=== PATIENT | male | born 1940 | race Caucasian/White ===

== ENCOUNTER 2021-12-17 06:41 | Inpatient (IN) | payer MEDICARE, OTHER, SELFPAY ==
[2021-12-17] VITALS (16 sets, daily range): BP systolic 133–187; BP diastolic 56–96; PULSE 75–118; RESP 12–25; TEMP 36.5–36.8; O2SAT 88–100; BMI 27.2
--- NOTE | ~2021-12-17 | XR_ITS ---
EXAMINATION: XR abdomen/kub 1V DATE: 12/17/2021 18:55 INDICATION: Left renal calculus. TECHNIQUE: A supine view of the abdomen on 3 radiographs was obtained. COMPARISON: CT abdomen and pelvis 12/17/2021 FINDINGS: There are no dilated loops of bowel. There is an 8 mm stone in the bladder. There is a 7 mm stone in left kidney. IMPRESSION: 1. Stones in the left kidney and bladder. Reviewed, dictated and finalized at location A.
--- NOTE | ~2021-12-17 | XR_ITS ---
EXAMINATION: XR chest 1V portable INDICATION: Dizziness and vomiting TECHNIQUE: Portable AP chest at 0659 hours COMPARISON: 01/21/2009 FINDINGS: The lungs are free of acute opacities. There is no pleural effusion or pneumothorax. The ca rdiomediastinal silhouette is normal. IMPRESSION: 1. No acute cardiopulmonary abnormality. Reviewed, dictated and finalized at location A.
--- NOTE | ~2021-12-17 | CT_ITS ---
EXAMINATION: CT abdomen pelvis w con DATE: 12/17/2021 08:30 INDICATION: Abdominal pain, nausea and vomiting. Coffee-ground emesis. TECHNIQUE: Computed tomography (CT) of the abdomen and pelvis was performed with 100 CC Omnipaque 300 intravenous contrast. Automated exposure control and iterative reconstruction technique were employe d. Exam dose: 1144.97 mGy-cm total exam DLP. COMPARISON: 02/20/2009 PET/CT scan FINDINGS: Mild dependent right lower lobe atelectasis. Heart size is within normal range. No pericard ial or pleural effusion. Small sliding hiatal hernia. Approximately 1 cm hypodense lesion of the lateral segment left hepatic lobe; consider hepatic cyst o r hemangioma. No other hepatic space-occupying mass lesion is evident. Possible cholelithiasis. No gallbladder wall thickening or pericholecystic fluid or fat stranding. No bile duct or pancreatic duct dilatation. No pancreatic mass lesion or calcification. Normal splenic size. Small fat density lesion of each adrenal gland suggesting small bilateral adrenal myelolipomas. Up to 4.5 cm mixed soft tissue and fatty lesion of the upper pole of left kidney consistent with dinesh omyolipoma 8 mm right renal cyst. Several up to 1.7 cm left renal cysts. 5.5 x 9 mm nonobstructing lower pole left renal calculus. Up to 7.7 x 8 mm calculi situated in the region of the right ureterovesical junction at the dependent aspect of the posterolateral right side of the urinary bladder. There is no hydroureteronephrosis on either side. Prominent prostate enlargement and occasional prostate calcifications. Minimal bladder wall thickenin g. Diverticulosis of left colon; no CT evidence of diverticulitis. Suture line of the small bowel, right lower quadrant. No evidence of bowel obstruction or intraperito sj free air. There is atherosclerotic calcification but normal caliber of the abdominal aorta and iliac arteries. No intraperitoneal or retroperitoneal or pelvic mass lesion or adenopathy or ascites is detected. Diffuse idiopathic skeletal hyperostosis of the thoracic spine. Severe multilevel degenerative disc d isease of the lumbar spine. No suspicious osteolytic or osteoblastic lesion is identified. IMPRESSION: Small sliding hiatal hernia Suspected cholelithiasis; no gallbladder wall thickening or pericholecystic fluid or fat stranding Approximately 1 cm millimeter hypodense lateral segment left hepatic lobe lesion; statistically this most likely a cyst or hemangioma Small bilateral adrenal myelolipoma is 4.5 cm left renal angiomyolipoma Bilateral renal cysts 5.5 x 9 mm nonobstructing lower pole left renal calculus with attenuation of the proximal 1400 Hounsf [place]eld units Up to 7.7 x 8 mm calculus situated in the dependent posterolateral right urinary bladder/ureterovesic al area, without hydronephrosis Prominent prostate enlargement and occasional prostate calcifications Diverticulosis of left colon; no evidence of diverticulitis Right lower quadrant small bowel anastomosis; no bowel obstruction Reviewed, dictated and finalized at Location A. Reviewed, dictated and finalized at location B. IMPRESSION: Small sliding hiatal hernia Suspected cholelithiasis; no gallbladder wall thickening or pericholecystic flu id or fat stranding Approximately 1 cm millimeter hypodense lateral segment left hepatic lobe lesio n; statistically this most likely a cyst or hemangioma Small bilateral adrenal myelolipoma is 4.5 cm left renal angiomyolipoma Bilateral renal cysts 5.5 x 9 mm nonobstructing lower pole left renal calculus with attenuation of th e proximal 1400 Hounsfield units Up to 7.7 x 8 mm calculus situated in the dependent posterolateral right urinar y bladder/ureterovesical area, without hydro
--- NOTE | ~2021-12-17 | CT_ITS ---
EXAMINATION: CT abdomen pelvis wo con DATE: 12/22/2021 13:32 INDICATION: Acute renal failure. Left flank pain. TECHNIQUE: Computed tomography (CT) of the abdomen and pelvis was performed without intravenous contr ast. Automated exposure control and iterative reconstruction technique were employed. The dose-length product was 677.96 mGy-cm. COMPARISON: CT abdomen and pelvis 12/17/2021 FINDINGS: The visualized portions of the lung bases demonstrate mild atelectasis. There are trace ple ural effusions. The heart size is normal. There is a trace pericardial effusion. The liver is normal. There are gallstones in the gallbladder, which is normal in size. The spleen and pancreas are normal . There are mass in the adrenal glands containing fat measuring up to 4.9 cm on the left, consistent with myelolipomas. There is cortical thinning of the kidneys. There are cysts in the kidneys measurin g up to 17 mm on the left. There is an 8 mm stone in left kidney. There is contrast in the renal tete ecting system. There are diverticula of the bladder. The prostate is severely enlarged. There is dive rticulosis of the colon without evidence of diverticulitis. There are no dilated loops of bowel. The appendix is not visualized. There are no pathologically enlarged lymph nodes. There is no free intrap eritoneal fluid. There is severe lumbar spondylosis. IMPRESSION: 1. Cortical thinning of the kidneys. No hydronephrosis. 2. 8 mm nonobstructing left kidney stone. Reviewed, dictated and finalized at location B.
--- NOTE | ~2021-12-17 | CT_ITS ---
Patient Name: Patient Name MR#: Patient MRN Accession#: Accession Numbers EXAMINATION: CTA brain carotid DATE: 12/21/2021 17:55 INDICATION: dysequilibrium TECHNIQUE: Computed tomographic angiography (CTA) of the head was performed without and with 100 mL O mnipaque-300 intravenous contrast. CTA of the neck was performed with intravenous contrast. The dose- length product was 1871.91 mGy-cm. Maximum intensity projection and volume rendered 3D-reconstruction s were created by the technologist on a separate workstation. COMPARISON: None. FINDINGS: CTA NECK: Aortic arch and proximal great vessels: Minimal prosthetic calcification at the origin of the left co mmon carotid, without stenosis Right common carotid, carotid bifurcation, and internal carotid artery: Minimal calcified plaque in t he distal common carotid.There is 0% stenosis of the proximal right internal carotid artery relative to normal distal artery lumen diameter (NASCET criteria). Left common carotid, carotid bifurcation, and internal carotid artery: Minimal calcified plaque in th e left carotid bulb.There is 0% stenosis of the proximal left internal carotid artery relative to nor mal distal artery lumen diameter (NASCET criteria). Vertebral arteries: No significant plaque or stenosis. Vertebral arteries co-dominant. Other findings: Degenerative changes in the cervical spine. CTA HEAD: No large vessel occlusion, aneurysm, high flow vascular malformation, nidus or extravasation. Atheros clerotic calcification in the carotid siphons, causing mild bilateral stenoses. CT brain: Left maxillary sinus mucosal thickening. Otherwise the aerated spaces are clear. No acute l arge vessel infarct. No extra-axial fluid collection. No intracranial hemorrhage. Moderate atrophy an d chronic white matter change. Bilateral lens replacements. IMPRESSION: 1. No acute intracranial finding. 2. No acute large vessel infarct. 3. No significant carotid or vertebral stenosis. Reviewed, dictated and finalized at location K.
--- NOTE | ~2021-12-17 | CT_ITS ---
EXAMINATION: CT brain wo con INDICATION: Headache COMPARISON: None TECHNIQUE: Standard unenhanced head CT. The dose-length product (DLP) was 605.33 mGy-cm. The mA was a djusted according to patient size. Iterative reconstruction technique was employed. FINDINGS: There is no acute intraparenchymal hemorrhage. No evidence of mass lesion. No evidence of a cute infarction. There is mild periventricular and subcortical hypodensity probably related to small vessel ischemic disease. There is mild prominence of the sulci and ventricles related to cerebral atr ophy. Intracranial calcified cerebral atherosclerosis is noted. There are no extra-axial collections. There is no mass effect or midline shift. Changes in the globes are likely from ocular lens surgery. The visualized sinuses and mastoid air cells are well aerated. IMPRESSION: 1. No acute intracranial abnormality. 2. Age related findings. Reviewed, dictated and finalized at location A.
--- NOTE | 2021-12-17 06:44 | ECG_ITS ---
Measurements Intervals [place] Rate: 93 P: 233 [place]: 110 QRS: -50 QRSD: 129 T: 87 QT: 365 QTc: 455 Interpretive Statements SINUS RHYTHM WITH SHORT [place] INTERVAL FREQUENT ATRIAL PREMATURE COMPLEXES LEFT AXIS DEVIATION LEFT BUNDLE BRANCH BLOCK BASELINE ARTIFACT- I, II, AVR, V1 ABNORMAL ECG Electronically Signed On 12-17-2021 7:50:09 CDT by Wai De La Rosa D.O.
[2021-12-17 07:07] LABS: Basophils Absolute Auto 0.1 K/mm3 (0.0-0.1); Basophils Percent Auto 0.9 % (0.2-1.2); Eosinophils Absolute Auto 0.2 K/mm3 (0-0.3); Eosinophils Percent Auto 2.3 % (0-4.4); Hematocrit 37.7 % (42.0-52.0); Hemoglobin 13.3 g/dL (14.0-18.0); Immature Granulocyte Absolute 0.02 K/mm3 (0.00-0.031); Immature Granulocyte Percent A 0.3 % (0-0.5); Lymphocytes Absolute Auto 3.12 K/mm3 (0.9-3.2); Lymphocytes Percent Auto 39.6 % (18.3-44.2); Mean Corpuscular HGB Conc 35.3 g/dl (32-36); Mean Corpuscular Hemoglobin 31.4 pg (26-34); Mean Corpuscular Volume 89.1 fl (80-100); Mean Platelet Volume 9.5 fl (7.4-10.4); Monocytes Absolute Auto 0.8 K/mm3 (0.1-0.6); Neutrophils Absolute Auto 3.7 K/mm3 (1.3-6.7); Neutrophils Percent Auto 46.9 % (45.5-73.1); Platelet Count Result 201 k/mm3 (150-375); Red Blood Count 4.23 M/mm3 (4.6-6.20); Red Cell Distribution Width 11.9 % (11.5-14.5); White Blood Count 7.9 K/mm3 (4.5-10.0)
[2021-12-17 07:11] LABS: Appearance Urine Slightly Cloudy (Clear); Bilirubin Urine Negative (Negative); Blood Urine 2+ (Negative); Glucose Urine UA 1+ mg/dL (Negative); Ketones Urine Negative (Negative); Leukocyte Esterase Ur 1+ LEU/UL (Negative); Nitrate Urine Negative (Negative); Protein Urine 1+ mg/dL (Negative); Urobilinogen Urine 0.2 mg/dL (<2.0); pH Urine 7.5 (5.0-9.0)
[2021-12-17 07:19] LABS: Partial Thromboplastin Time 22.6 SECONDS (22.3-36.8); Prothrombin Time 12.7 Seconds (11.1-14.7)
[2021-12-17 07:23] LABS: Add Urine Microscopic? YES; Color Urine Light Yellow (Yellow)
[2021-12-17 07:26] LABS: Alanine Aminotransferase 22 U/L (6-50); Albumin Level 4.3 g/dL (3.5-5.1); Alkaline Phosphatase 64 U/L (38-126); Anion Gap 12 mmol/L (8-16); Aspartate Amino Transferase 29 U/L (17-59); Bilirubin,Total 0.5 mg/dL (0.2-1.3); Blood Urea Nitrogen 21 mg/dL (9-20); Calcium 9.2 mg/dL (8.4-10.2); Carbon Dioxide 24 mmol/L (22-30); Chloride 103 mmol/L (98-107); Estimated CRCL calculation 58 ml/min; Estimated Glomerular Filt Rate > 60; Glucose 239 mg/dL (65-110); Potassium 2.6 mmol/L (3.4-5.0); Sodium 139 mmol/L (137-145)
[2021-12-17 07:27] LABS: Mucus Urine Rare /lpf; RBC Urine >75 /hpf (0-2); WBC Urine 21-30 /hpf
[2021-12-17 07:31] LABS: Troponin I < 0.012 ng/mL (0.000-0.034)
--- NOTE | 2021-12-17 07:53 | ED.DIZZY ---
HPI - Dizziness General Chief Complaint: Dizziness Stated Complaint: Dizzy, lightheaded, emesis Time Seen by Provider: 12/17/21 07:53 Source: patient, EMS and RN notes reviewed Mode of arrival: EMS Limitations: no limitations History of Present Illness HPI Narrative: 81 years old white male came by ambulance because of sudden onset of dizziness, nausea and vomiting of coffee-ground material. Patient denies having similar symptoms. Patient denies that everything is spinning but cannot open his eye because it get worse. He denies fever, chills, chest pain, shortness of breath, focal deficit. History of diabetes, hypertension, hyperlipidemia. Currently complaining also of headache because of the strenuous vomiting and dry heaving Related Data Allergies Allergy/AdvReac Type Severity Reaction Status Date / Time codeine Allergy Mild CONFUSION Verified 12/17/21 07:59 Review of Systems Review of Systems: All systems reviewed & are unremarkable except as noted in HPI and below Exam Narrative: General appearance: Well-developed, well-nourished, constant with dry heaving Skin: Normal color Head: Normocephalic, nontraumatic Eyes: Clear conjunctiva ENT: Oropharynx normal, ears normal, nose normal Neck: Supple, nontender Chest and respiratory: Airway patent, no respiratory distress, no accessory muscle use Heart: Regular rate/rhythm Abdomen: Soft, diffuse tenderness,, no organomegaly, quiet bowel sounds Vascular: Normal peripheral pulses, normal capillary refill. 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 Patient was not able to open his eye on arrival to the emergency room. Patient received 1 L of normal saline, 8 mg of Zofran IV, 5 mg of Valium IV, 25 mg of Antivert orally. Symptoms resolved within 30 minutes. Work-up showed hypokalemia 2.6, 40 mEq IV started, 40 mg orally given. Possible urinary tract infection. 1 g Rocephin IV started. Patient had coffee-ground emesis on arrival to the emergency room, he denies drinking coffee or eating anything prior to that vomiting. Protonix 40 mg IV given prior to admission. Benign positional vertigo is my concern. Consultations Consultation #1: DR WALKER Date: 12/17/21 Time: 11:08 Vital Signs Vital signs: Vital Signs Temperature 36.5 C 12/17/21 06:40 Pulse Rate 93 12/17/21 06:40 Respiratory Rate 16 12/17/21 06:40 Blood Pressure 187/89 H 12/17/21 06:40 Pulse Oximetry 98 12/17/21 06:40 Temperature 36.5 C 12/17/21 06:40 Pulse Rate 103 H 12/17/21 09:40 Respiratory Rate 20 12/17/21 09:40 Blood Pressure 133/70 12/17/21 09:40 Pulse Oximetry 100 12/17/21 09:40 MDM - Dizziness Lab Data Result diagrams: 12/17/21 06:54 12/17/21 06:54 Labs: Lab Results 12/17/21 12/17/21 12/17/21 Range/Units 06:54 06:54 06:54 WBC 7.9 (4.5-10.0) K/mm3 RBC 4.23 L (4.6-6.20) M/mm3 Hgb 13.3 L (14.0-18.0) g/dL Hct 37.7 L (42.0-52.0) % MCV 89.1 (80-100) fl MCH 31.4 (26-34) pg MCHC 35.3 (32-36) g/dl RDW 11.9 (11.5-14.5) % Plt Count 201 (150-375) k/mm3 MPV 9.5 (7.4-10.4) fl Immature Gran % (Auto) 0.3 (0-0.5) % Neut % (Auto) 46.9 (45.5-73.1) % Lymph % (Auto) 39.6 (18.3-44.2) % Hayes % (Auto) 10.0 H (2.6-8.5) % Eos % (Auto) 2.3 (0-4.4) % Baso % (Auto) 0.9 (0.2-1.2) % Lymp
[2021-12-17] MEDS: ONDANSETRON INJ 4 MG/2 ML VIAL 8 MG IV PUSH (08:00)
[2021-12-17] MEDS: diazePAM INJ (*CRX) 10 MG/2 ML SYRINGE 5 MG IV PUSH (08:00)
[2021-12-17] MEDS: SODIUM CHLORIDE 0.9% IV 1,000 ML 999 ML IV CONT (08:08)
--- NOTE | 2021-12-17 08:19 | PC.NURSE ---
Pt to CT scan at this time, fluids infusing, VSS.
[2021-12-17 08:22] LABS: Lipase 178 U/L (23-300)
[2021-12-17] MEDS: POTASSIUM CHLORIDE INJ 40 MEQ in SODIUM CHLORIDE 0.9% IV 500 ML 130 MEQ IVPB (08:33)
--- NOTE | 2021-12-17 08:35 | PC.NURSE ---
Pt 88% on room air following medical record retrieval specialist and resting, placed on 2 L NC O2 at this time. Ox Sat now 98%.
[2021-12-17 08:36] LABS: SARS-CoV-2 RNA PCR Negative
--- NOTE | 2021-12-17 09:33 | PC.NURSE ---
spoke to pts brother on telephone and gave update on pt status per pt permission
[2021-12-17] MEDS: MECLIZINE HCL 25 MG TABLET PO (09:39)
--- NOTE | 2021-12-17 09:40 | PC.NURSE ---
Pt taken off NC O2 due to alert and upright. 100% on room air. VSS.
[2021-12-17 11:22] LABS: Reflex Lactic Acid Yes or No Add Lactic
[2021-12-17] MEDS: PANTOPRAZOLE SODIUM IV 40 MG VIAL IV PUSH (11:39)
[2021-12-17] MEDS: POTASSIUM CHLORIDE 20 MEQ TABLET 40 MEQ PO (11:40)
[2021-12-17 11:43] LABS: Hematocrit 37.2 % (42.0-52.0); Hemoglobin 12.9 g/dL (14.0-18.0)
[2021-12-17 11:55] LABS: Lactic Acid 2.6 mmol/L (0.7-2.0)
--- NOTE | 2021-12-17 12:51 | ADMGEN ---
This patient, Richie Bravo, was admitted to Medical Room 342-01. Patient/family oriented to hospital policies and general routines including ID bracelet, bed and alarms, visiting hours, pain management, procedures, bathroom and other care routines, personal items, smoking policy, room service/diet, and visiting hours. Information on how to activate the Rapid Response Team has been discussed. Patient/Family are encouraged to report perceived risks to care and to ask questions if they do not understand what they are told or what they should do.
--- NOTE | 2021-12-17 13:00 | PM.IMHP ---
H&P: HPI History of Present Illness Date/Time: 12/17/21 13:00 Chief Complaint: Nausea, vomiting, dizziness. Narrative: This is a 81-year-old male with hypertension, hyperlipidemia, diabetes, and history of gastrointestinal stromal tumor in 2008 who presented to the emergency department this morning from home for evaluation of nausea, vomiting, and dizziness. He got up at around 05:00 to fetch a snack for his . He then went to use the restroom and decided to sit down and watch the morning news since he was already up. As he went to sit in the chair he developed sudden onset of severe vertigo with nausea and dry heaves. This continued for upwards of 5 minutes before he instructed his to call 911. En route to the hospital he had 1 episode of reported coffee ground emesis, per EMS report. On arrival to the ER, he received a L of normal saline, 8 mg Zofran IV, 5 mg Valium IV, and 25 mg of Antivert orally with resolution of his symptoms within 30 minutes. Due to reports of possible coffee-ground emesis he is being admitted for observation and consultation. He has had urinary frequency since admission, but urinating only a small amount each time. He was found to have more than a L of urine in his bladder an urology was consulted given findings of bladder calculus noted on CT of the abdomen and pelvis. At the time my evaluation he is resting comfortably and feels much better now that his bladder has drained. He has not had any further episodes of vertigo. He denies headache, auditory and visual changes, focal weakness, paresthesias, facial droop, slurred speech, fever, chills, sweats, dark stools, abdominal pain, epigastric pain, flank pain, dysuria, chest pain, pleuritic pain, palpitations, and shortness of breath. Review of Systems Review of Systems: Twelve systems were reviewed and are negative except for as per HPI. 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 Hyperlipidemia Hypertension Kidney stones Type 2 diabetes mellitus Surgical History Surgical History History of appendectomy (1961) History of colonoscopy with polypectomy (09/21/04) Hyperplastic mucosal rectal polyp removed per Dr. Flood. History of resection of small bowel (01/22/09) Laparoscopic resection of cystic mass of the small intestine with anastomosis per Dr. Day. Family History Family History Mother Lung cancer Father Congestive heart failure Social History Social History (Updated 12/17/21 @ 21:03 by Bianca Levy PA-C) Social History: Surrogate decision maker: Mala Bravo, spouse. Code status: Full code. Smoking status: Never smoker Alcohol intake: never Substance use: never Living arrangements: with family Additional living arrangements comments: The patient lives with his in [place]. He enjoys building and working on computers. Additional occupation/education comments: Retired from the [employer]. Spiritual care concerns: No Meds Home Medications and Allergies Home Medications Medication Instructions Recorded Confirmed Type amlodipine 10 mg PO HS 12/17/21 12/17/21 History aspirin [Adult Low Dose Aspirin] 81 mg PO HS 12/17/21 12/17/21 History atorvastatin 10 mg PO HS 12/17/21 12/17/21 History cholecalciferol (vitamin D3) 2,000 unit PO BID 12/17/21 12/17/21 History gabapentin 300 mg PO TID 12/17/21 12/17/21 History hydrochlorothiazide 12 mg PO HS 12/17/21 12/17/21 History metformin 500 mg PO QID 12/17/21 12/17/21 History omega-3 fatty acids-vitamin E 1,000 cap PO HS 12/17/21 12/17/21 History [Fish Oil] quinapril 40 mg PO BID 12/17/21 12/17/21 History terazosin 5 mg PO DAILY 12/17/21 12/17/21 History Allergies Allergy/AdvReac Type Severity Reaction S
[2021-12-17] MEDS: SODIUM CHLORIDE 0.9% IV 1,000 ML 125 ML IV CONT ×2 (13:05→21:26)
--- NOTE | 2021-12-17 15:15 | WPDGICN ---
Assessment and Plan Assessment and plan (1) Acute upper GI bleed: Code(s): K92.2 - Gastrointestinal hemorrhage, unspecified Status: Acute Assessment and Plan: Patient with coffee-ground emesis. May represent gastritis or ulcer disease. Plan for IV hydration and I will cover with Protonix. Plan for EGD to evaluate more thoroughly in the morning. (2) History of colon polyps: Code(s): Z86.010 - Personal history of colonic polyps Status: Acute Assessment and Plan: Patient has a distant history of colon polyps in 2004. Uncertain if he has had any recent follow-up. Follow-up colonoscopy electively is anticipated can be performed as an outpatient. (3) Abnormal urinalysis: Code(s): R82.90 - Unspecified abnormal findings in urine Status: Acute Assessment and Plan: Patient noted to have hematuria with possible urinary tract infection. CT scanning suggest he has urinary calculi follow-up by appropriate clinical service is advised. GI Consult Note Consult date/time: 12/17/21 15:15 HPI: Richie Bravo is a 81 year old male I am asked to see for hematemesis. Patient has distant history of GI stromal tumor requiring resection in 1999 and . Has been treated for hypertension and diabetes. He was in his usual state of how health till early this morning at 5:00 a.m. when he vomited coffee-ground material. Patient denies any specific abdominal pain. Upon presenting the emergency room blood count was noted to be essentially stable. He was noted have very low potassium at 2.6. He is now being admitted for rehydration and further evaluation. Patient denies any prior history of peptic ulcer disease. He does have a history of a benign colon polyp removed from the colon 2004. His family history is noncontributory. CT scan of the abdomen reveals evidence of urinary calculi. Patient has a past medical history of colorectal polyp many years ago. 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 Flood. History of resection of small bowel (01/22/09) Laparoscopic resection of cystic mass of the small intestine with anastomosis per Dr. Day. Family History Family History Mother Lung cancer Father Congestive heart failure Social History Social History (Updated 12/17/21 @ 13:20 by Bianca Levy PA-C) Social History: Surrogate decision maker: Mala Bravo, spouse. Code status: Full code. Smoking status: Never smoker Alcohol intake: never Substance use: never Spiritual care concerns: No Meds Home Medications and Allergies Home Medications Medication Instructions Recorded Confirmed Type amlodipine 10 mg PO DAILY 12/17/21 12/17/21 History atorvastatin 10 mg PO DAILY 12/17/21 12/17/21 History gabapentin 300 mg PO TID 12/17/21 12/17/21 History hydrochlorothiazide 12.5 mg PO DAILY 12/17/21 12/17/21 History metformin 500 mg PO DAILY 12/17/21 12/17/21 History quinapril 40 mg PO DAILY 12/17/21 12/17/21 History terazosin 5 mg PO DAILY 12/17/21 12/17/21 History Allergies Allergy/AdvReac Type Severity Reaction Status Date / Time codeine Allergy Mild CONFUSION Verified 12/17/21 07:59 Vital Signs Vital Signs - 24 hr 12/17/21 06:40 12/17/21 07:01 12/17/21 08:00 Temperature 97.7 F Pulse Rate 93 75 99 Respiratory Rate 16 16 19 Blood Pressure 187/89 H 157/74 H 144/65 H Pulse O
[2021-12-17 16:53] LABS: Glucose Point of Care 220 mg/dl (65-105)
[2021-12-17] MEDS: POTASSIUM CHLORIDE 20 MEQ TABLET.ER PO (17:01)
[2021-12-17] MEDS: INSULIN ASPART (*BKC) 100 UNITS/ML SUB-Q (17:02)
[2021-12-17] MEDS: GABAPENTIN 300 MG CAPSULE PO (17:02)
--- NOTE | 2021-12-17 17:09 | WPDURCON ---
Assessment and Plan Assessment and plan (1) Urinary retention due to benign prostatic hyperplasia: Code(s): N40.1 - Benign prostatic hyperplasia with lower urinary tract symptoms; R33.8 - Other retention of urine Status: Acute (2) Bladder calculus: Code(s): N21.0 - Calculus in bladder Status: Acute (3) Left renal stone: Code(s): N20.0 - Calculus of kidney Status: Acute (4) Angiomyolipoma of left kidney: Code(s): D17.71 - Benign lipomatous neoplasm of kidney Status: Acute Assessment and Plan: Start combination therapy with finasteride and tamsulosin for enlarged prostate with urinary retention and a bladder calculus Plan cystoscopy with bladder calculus tomorrow ESWL for 8 mm left renal calculus down the road Stable left renal angiomyolipoma follow-up imaging in 6 months. Urology Consult Note HPI Date Seen: 12/17/21 Requesting Physician: Antoinette Leal MD Primary Care Provider: Akosua Latif, FIELD ADMINISTRATIVE ASSISTANT Consult Narrative Narrative: Richie Bravo is a 81 year old male who I saw few times but not since January 2011. Back then I stone for BPH that was not requiring medication and a transient PSA elevation. Also had a left renal angiomyolipoma that his medical oncologists was following. Patient admitted at this time with acute nausea vomiting and Coffee-ground emesis. Was also noted at the time of admission he had scant gross hematuria. A CT scan of the abdomen and pelvis with out contrast shows a nonobstructing 8 mm left lower calyceal stone and a similar size bladder calculus. Also appears to be in urinary retention with bladder scan of greater than 999 cc.. 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 Flood. History of resection of small bowel (01/22/09) Laparoscopic resection of cystic mass of the small intestine with anastomosis per Dr. Day. Family History Family History Mother Lung cancer Father Congestive heart failure Social History Social History Social History: Surrogate decision maker: Mala Bravo, spouse. Code status: Full code. Smoking status: Never smoker Alcohol intake: never Substance use: never Spiritual care concerns: No Meds Home Medications and Allergies Home Medications Medication Instructions Recorded Confirmed Type amlodipine 10 mg PO HS 12/17/21 12/17/21 History aspirin [Adult Low Dose Aspirin] 81 mg PO HS 12/17/21 12/17/21 History atorvastatin 10 mg PO HS 12/17/21 12/17/21 History cholecalciferol (vitamin D3) 2,000 unit PO BID 12/17/21 12/17/21 History gabapentin 300 mg PO TID 12/17/21 12/17/21 History hydrochlorothiazide 12 mg PO HS 12/17/21 12/17/21 History metformin 500 mg PO QID 12/17/21 12/17/21 History omega-3 fatty acids-vitamin E 1,000 cap PO HS 12/17/21 12/17/21 History [Fish Oil] quinapril 40 mg PO BID 12/17/21 12/17/21 History terazosin 5 mg PO DAILY 12/17/21 12/17/21 History Allergies Allergy/AdvReac Type Severity Reaction Status Date / Time codeine Allergy Mild CONFUSION Verified 12/17/21 07:59 Vital Si
[2021-12-17 17:30] LABS: Hematocrit 37.8 % (42.0-52.0); Hemoglobin 13.6 g/dL (14.0-18.0)
[2021-12-17 17:40] LABS: Anion Gap 10 mmol/L (8-16); Blood Urea Nitrogen 21 mg/dL (9-20); Calcium 8.7 mg/dL (8.4-10.2); Carbon Dioxide 22 mmol/L (22-30); Chloride 106 mmol/L (98-107); Estimated CRCL calculation 42 ml/min; Estimated Glomerular Filt Rate 49; Glucose 206 mg/dL (65-110); Magnesium 1.6 mg/dL (1.6-2.3); Potassium 4.3 mmol/L (3.4-5.0); Sodium 138 mmol/L (137-145)
[2021-12-17 20:44] LABS: Glucose Point of Care 200 mg/dl (65-105)
[2021-12-17 23:41] LABS: Hematocrit 36.5 % (42.0-52.0); Hemoglobin 12.5 g/dL (14.0-18.0)
[2021-12-18] VITALS (25 sets, daily range): BP systolic 128–166; BP diastolic 43–116; PULSE 70–110; RESP 15–30; TEMP 36.4–37.1; O2SAT 91–99
[2021-12-18 06:12] LABS: Basophils Percent Auto 0.5 % (0.2-1.2); Eosinophils Absolute Auto 0.1 K/mm3 (0-0.3); Eosinophils Percent Auto 0.6 % (0-4.4); Hematocrit 36.6 % (42.0-52.0); Hemoglobin 12.6 g/dL (14.0-18.0); Immature Granulocyte Absolute 0.02 K/mm3 (0.00-0.031); Immature Granulocyte Percent A 0.2 % (0-0.5); Lymphocytes Absolute Auto 0.73 K/mm3 (0.9-3.2); Lymphocytes Percent Auto 8.7 % (18.3-44.2); Mean Corpuscular HGB Conc 34.4 g/dl (32-36); Mean Corpuscular Hemoglobin 31.3 pg (26-34); Mean Corpuscular Volume 90.8 fl (80-100); Mean Platelet Volume 9.5 fl (7.4-10.4); Monocytes Absolute Auto 0.8 K/mm3 (0.1-0.6); Monocytes Percent Auto 9.3 % (2.6-8.5); Neutrophils Absolute Auto 6.7 K/mm3 (1.3-6.7); Neutrophils Percent Auto 80.7 % (45.5-73.1); Platelet Count Result 179 k/mm3 (150-375); Red Blood Count 4.03 M/mm3 (4.6-6.20); Red Cell Distribution Width 12.2 % (11.5-14.5); White Blood Count 8.4 K/mm3 (4.5-10.0)
[2021-12-18 06:20] LABS: Magnesium 1.8 mg/dL (1.6-2.3)
[2021-12-18 06:23] LABS: Anion Gap 5 mmol/L (8-16); Blood Urea Nitrogen 15 mg/dL (9-20); Calcium 8.5 mg/dL (8.4-10.2); Carbon Dioxide 27 mmol/L (22-30); Chloride 108 mmol/L (98-107); Estimated CRCL calculation 49 ml/min; Estimated Glomerular Filt Rate 58; Glucose 137 mg/dL (65-110); Potassium 3.7 mmol/L (3.4-5.0); Sodium 140 mmol/L (137-145)
[2021-12-18 08:07] LABS: Glucose Point of Care 145 mg/dl (65-105)
[2021-12-18] MEDS: TERAZOSIN HCL 5 MG CAPSULE PO (08:31)
[2021-12-18] MEDS: amLODIPine BESYLATE 5 MG TABLET 10 MG PO (08:32)
[2021-12-18] MEDS: lisinopriL 20 MG TABLET 40 MG PO (08:32)
[2021-12-18] MEDS: ATORVASTATIN 10 MG TABLET PO (08:32)
[2021-12-18] MEDS: FINASTERIDE 5 MG TABLET PO (08:32)
[2021-12-18] MEDS: GABAPENTIN 300 MG CAPSULE PO ×2 (08:32→16:38)
[2021-12-18] MEDS: PANTOPRAZOLE SODIUM IV 40 MG VIAL IV PUSH (08:33)
[2021-12-18] MEDS: POTASSIUM CHLORIDE 20 MEQ TABLET.ER PO ×2 (08:33→16:38)
[2021-12-18 10:41] LABS: Glucose Point of Care 149 mg/dl (65-105)
[2021-12-18] MEDS: LACTATED RINGERS 1,000 ML 150 ML IV CONT (10:45)
--- NOTE | 2021-12-18 10:47 | WPDANESEPPF ---
Anes - Initial Pre Proc Eval Procedure: Operation Date: 12/18/21 12:00 Proposed Procedures p Cystoscopy,Bladder Stone Extraction - Michael Guerrero MD Operation Date: 12/18/21 12:30 Proposed Procedures p Esophagogastroduodenoscopy - Jethro Flood MD Date/Time: 12/18/21 10:47 Surgeon: Antoinette Leal MD Pre Op Diagnosis: Dizziness/vomiting/hypokalemia/possible upper GI b Patient Data Age: 81 Gender: M Height: 1.83 m Weight: 91.7 kg Last Vital Signs Temp 36.7 C 12/18/21 10:43 Pulse 110 H 12/18/21 10:43 Resp 18 12/18/21 10:43 BP 160/68 H 12/18/21 10:43 Pulse Ox 98 12/18/21 10:43 Allergies Allergy/AdvReac Type Severity Reaction Status Date / Time codeine Allergy Mild CONFUSION Verified 12/18/21 10:24 Home Medications Medication Instructions Recorded Confirmed Type amlodipine 10 mg PO HS 12/17/21 12/17/21 History aspirin [Adult Low Dose Aspirin] 81 mg PO HS 12/17/21 12/17/21 History atorvastatin 10 mg PO HS 12/17/21 12/17/21 History cholecalciferol (vitamin D3) 2,000 unit PO BID 12/17/21 12/17/21 History gabapentin 300 mg PO TID 12/17/21 12/17/21 History hydrochlorothiazide 12 mg PO HS 12/17/21 12/17/21 History metformin 500 mg PO QID 12/17/21 12/17/21 History omega-3 fatty acids-vitamin E 1,000 cap PO HS 12/17/21 12/17/21 History [Fish Oil] quinapril 40 mg PO BID 12/17/21 12/17/21 History terazosin 5 mg PO DAILY 12/17/21 12/17/21 History Laboratory Tests 12/17/21 12/17/21 12/17/21 11:38 11:38 16:44 WBC RBC Hgb 12.9 g/dL L g/dL (14.0-18.0) Hct 37.2 % L % (42.0-52.0) MCV MCH MCHC RDW Plt Count MPV Immature Gran % (Auto) Neut % (Auto) Lymph % (Auto) [place] % (Auto) Eos % (Auto) Baso % (Auto) Lymph # (Auto) [place] # (Auto) Eos # (Auto) Baso # (Auto) Abs Immat Gran (auto) Absolute Neuts (auto) Absolute Nucleated RBC Nucleated RBC % Sodium Potassium Chloride Carbon Dioxide Anion Gap BUN Creatinine Estim Creat Clear Calc Estimated GFR Glucose POC Capillary Glucose 220 mg/dl H mg/dl (65-105) Hemoglobin A1c Lactic Acid 2.6 mmol/L H mmol/L (0.7-2.0) Calcium Magnesium 12/17/21 12/17/21 12/17/21 17:15 17:15 17:15 WBC RBC Hgb 13.6 g/dL L g/dL (14.0-18.0) Hct 37.8 % L % (42.0-52.0) MCV MCH MCHC RDW Plt Count MPV Immature Gran % (Auto) Neut % (Auto) Lymph % (Auto) [place] % (Auto) Eos % (Auto) Baso % (Auto) Lymph # (Auto) [place] # (Auto) Eos # (Auto) Baso # (Auto) Abs Immat Gran (auto) Absolute Neuts (auto) Absolute Nucleated RBC Nucleated RBC % Sodium 138 mmol/L mmol/L (137-145) Potassium 4.3 mmol/L mmol/L (3.4-5.0) Chloride 106 mmol/L mmol/L (98-107) Carbon Dioxide 22 mmol/L mmol/L (22-30) Anion Gap 10 mmol/L mmol/L (8-16) BUN 21 mg/dL H mg/dL (9-20) Creatinine 1.40 mg/dL H mg/dL (0.7-1.3) Estim Creat Clear Calc 42 ml/min ml/min Estimated GFR 49 L (59 - ) Glucose 206 mg/dL H mg/dL (65-110) POC Capillary Glucose Hemoglobin A1c 7.0 % H % (<5.7) Lactic Acid Calcium 8.7 mg/dL mg/dL (8.4-10.2) Magnesium 1.6 mg/dL mg/dL (1.6-2.3) 12/17/21
--- NOTE | 2021-12-18 12:18 | WPDHPUPDATE1 ---
History and Physical Update Update Date/Time: 12/18/21 12:18 History and Physical has been reviewed, including an updated exam of the patient. There are NO changes in the patient's condition. Risks, benefits, and alternatives have been discussed and questions answered. Patient agrees to proceed with procedure. Proceed with cystoscopy with bladder stone extraction, possible laser
[2021-12-18] MEDS: LACTATED RINGERS 1,000 ML 30 ML IV CONT (12:52)
[2021-12-18] MEDS: LIDOCAINE HCL 2% GEL UROJET 10 ML PKG MUCOUS MEM (13:25)
--- NOTE | 2021-12-18 13:36 | P.OP_ITS ---
Procedure Note - Detailed Date of Procedure 12/18/21 Pre-op Diagnosis Bladder stone, urinary retention Post-op Diagnosis Same Procedure Performed Cystoscopy with extraction of bladder calculus, fulguration of prostatic fossa Surgeon Edwin Bruce MD Anesthesia General Description of Procedure Patient was taken to the operative suite correctly identified. Once anesthesia was obtained he was placed in dorsal lithotomy position and prepped draped usual sterile fashion. Prior Rivers catheter was removed. Twenty-two [place] scope was inserted the bladder direct vision. There was no urethral strictures. Prostate has obstructing lateral lobes. He also has a very high floor of the prostate going to the bladder neck. Prostate is very vascular in nature. Upon entering the bladder there are no tumors noted. He has marked trabeculation with cellule formation is well of small diverticuli. There were no tumors noted. He was noted to have the stone somewhat lodged between the trigone area and the bladder neck area. In order to retrieve this we placed a 24 [place] resectoscope sheath in and using the loop was able to grasp the stone and remove it in its entirety. Due to the vascularity the prostate was oozing at the bladder neck area. We went ahead and fulgurated this area for hemostasis. 2% viscous lidocaine was inserted into the urethra. [address] [place] [address] was placed and placed to continuous bladder irrigation. Patient is taken recovery stable condition. Patient can have a voiding trial with postvoid residual checks once his urine is clear possibly over the weekend Urine Output 400 Drains Yes Packing No Pathology Yes Complications No immediate complications Condition Stable
[2021-12-18 13:45] LABS: Glucose Point of Care 132 mg/dl (65-105)
--- NOTE | 2021-12-18 15:01 | PM.IMPN ---
Progress Note: A&P Assessment and Plan (1) Dizziness: Code(s): R42 - Dizziness and giddiness Status: Acute Assessment and Plan: Sudden onset and improvement with medications received in the ER. Most likely benign paroxysmal positional vertigo. Monitor for now and consider further workup if no improvement. (2) Elevated lactic acid level: Code(s): R79.89 - Other specified abnormal findings of blood chemistry Status: Acute Assessment and Plan: No evidence to suggest sepsis at this time. Blood and urine cultures are pending. May be related to metformin which is on hold. (3) Nausea and vomiting: Code(s): R11.2 - Nausea with vomiting, unspecified Status: Acute Assessment and Plan: Likely due to sudden onset of severe dizziness. Symptoms resolved with fluids, Zofran, Valium, and Antivert. Reported coffee-ground emesis x1 for which he was given Protonix. EGD performed today showing antral gastric ulcers, continue PPI, follow-up GI management (4) Urinary retention due to benign prostatic hyperplasia: Code(s): N40.1 - Benign prostatic hyperplasia with lower urinary tract symptoms; R33.8 - Other retention of urine Status: Acute Assessment and Plan: Rivers catheter inserted with resolution of symptoms. Dr. Guerrero started combination finasteride and tamsulosin. (5) Left renal stone: Code(s): N20.0 - Calculus of kidney Status: Acute Assessment and Plan: Plan for ESWL as an outpatient. (6) Bladder calculus: Code(s): N21.0 - Calculus in bladder Status: Acute Assessment and Plan: Cystoscopy completed, stone retrieved, fulguration of prostatic fossa completed (7) Abnormal urinalysis: Code(s): R82.90 - Unspecified abnormal findings in urine Status: Acute Assessment and Plan: 2+ blood and < 75 RBCs on microscopy. May be related to kidney and/or bladder stone. 1+ leukocyte esterase and 21 to 30 WBCs; continue ceftriaxone pending urine culture. (8) Hypokalemia: Code(s): E87.6 - Hypokalemia Status: Acute Assessment and Plan: Potassium will be replaced and monitored. Hold thiazide diuretic for now. (9) Type 2 diabetes mellitus: Code(s): E11.9 - Type 2 diabetes mellitus without complications Status: Acute Assessment and Plan: Random glucose on presentation was 239. Initiate sliding scale insulin, Accu-Cheks, and hypoglycemic protocol. Hold metformin as patient received IV contrast. (10) Hypertension: Code(s): I10 - Essential (primary) hypertension Status: Acute Assessment and Plan: Blood pressures were reviewed and they have been running a bit high. Continue antihypertensives (HCTZ on hold given low potassium) and monitor. (11) Hyperlipidemia: Code(s): E78.5 - Hyperlipidemia, unspecified Status: Acute Assessment and Plan: Continue atorvastatin; LFTs within normal limits. Subjective Date/time seen: 12/18/21 15:01 Patient resting comfortably any complaints. He states all the symptoms resolved after having his bladder drained 1 L of urine. He does admit to having a couple episodes of spinning slightly dizzy but none that were severe as this 1, however, this was completely resolved. He denies any events overnight, no chest pain shortness a breath. No nausea vomiting diarrhea today. Review of Systems Review of Systems: All systems reviewed & are unremarkable except as noted in HPI and below Exam Const: General: no acute distress HENMT: Mouth: Yes moist mucous membranes Eyes: General: appearance normal, both eyes and all related structures Neck: Neck: no JVD Resp: Auscultation: clear to auscultation bilaterally Cardio: Rate: regular rate Rhythm: regular rhythm GI: Inspection: non-distended GI Palp: Yes Soft to palpation and No Tenderness to palpation present (GI) Skin:
[2021-12-18 16:41] LABS: Glucose Point of Care 158 mg/dl (65-105)
[2021-12-18 22:30] LABS: Glucose Point of Care 136 mg/dl (65-105)
[2021-12-19] VITALS (12 sets, daily range): BP systolic 132–173; BP diastolic 58–97; PULSE 72–102; RESP 16–20; TEMP 36.6–36.8; O2SAT 95–98
[2021-12-19 06:57] LABS: Hematocrit 36.7 % (42.0-52.0); Hemoglobin 13.2 g/dL (14.0-18.0); Mean Corpuscular Hemoglobin 31.9 pg (26-34); Mean Corpuscular Volume 88.6 fl (80-100); Mean Platelet Volume 9.2 fl (7.4-10.4); Platelet Count Result 164 k/mm3 (150-375); Red Blood Count 4.14 M/mm3 (4.6-6.20); Red Cell Distribution Width 11.7 % (11.5-14.5); White Blood Count 8.8 K/mm3 (4.5-10.0)
[2021-12-19 07:25] LABS: Alanine Aminotransferase 24 U/L (6-50); Albumin Level 3.8 g/dL (3.5-5.1); Alkaline Phosphatase 46 U/L (38-126); Anion Gap 8 mmol/L (8-16); Aspartate Amino Transferase 49 U/L (17-59); Blood Urea Nitrogen 14 mg/dL (9-20); Calcium 8.6 mg/dL (8.4-10.2); Carbon Dioxide 23 mmol/L (22-30); Chloride 106 mmol/L (98-107); Estimated CRCL calculation 53 ml/min; Estimated Glomerular Filt Rate > 60; Glucose 131 mg/dL (65-110); Potassium 4.1 mmol/L (3.4-5.0); Sodium 137 mmol/L (137-145)
--- NOTE | 2021-12-19 07:42 | WPDANESPN ---
Anes - Prog Note Post-Op Date/Time: 12/19/21 07:42 Vital Signs: Last Vital Signs Temp 36.8 C 12/19/21 05:29 Pulse 85 12/19/21 05:29 Resp 18 12/19/21 05:29 BP 142/69 H 12/19/21 05:29 Pulse Ox 95 12/19/21 05:29 Pain Score (VAS): 08/17 I/O: Intake & Output 12/18/21 12/18/21 12/19/21 15:59 23:59 07:59 Intake Total 1150 480 50 Output Total 5109 4169 Balance -7135 -4004 50 Laboratory Tests 12/19/21 06:48 12/19/21 06:48 12/18/21 12/18/21 12/18/21 07:51 10:39 13:42 WBC RBC Hgb Hct MCV MCH MCHC RDW Plt Count MPV Sodium Potassium Chloride Carbon Dioxide Anion Gap BUN Creatinine Estim Creat Clear Calc Estimated GFR Glucose POC Capillary Glucose 145 H 149 H 132 H Calcium Total Bilirubin AST ALT Alkaline Phosphatase Total Protein Albumin 12/18/21 12/18/21 12/19/21 16:35 22:00 06:48 WBC 8.8 RBC 4.14 L Hgb 13.2 L Hct 36.7 L MCV 88.6 MCH 31.9 MCHC 36.0 RDW 11.7 Plt Count 164 MPV 9.2 Sodium Potassium Chloride Carbon Dioxide Anion Gap BUN Creatinine Estim Creat Clear Calc Estimated GFR Glucose POC Capillary Glucose 158 H 136 H Calcium Total Bilirubin AST ALT Alkaline Phosphatase Total Protein Albumin 12/19/21 06:48 WBC RBC Hgb Hct MCV MCH MCHC RDW Plt Count MPV Sodium 137 Potassium 4.1 Chloride 106 Carbon Dioxide 23 Anion Gap 8 BUN 14 Creatinine 1.10 Estim Creat Clear Calc 53 Estimated GFR > 60 Glucose 131 H POC Capillary Glucose Calcium 8.6 Total Bilirubin 1.0 AST 49 ALT 24 Alkaline Phosphatase 46 Total Protein 7.0 Albumin 3.8 Microbiology 12/17/21 06:54 Urine Clean Catch Urine Culture - Preliminary Enterococcus species 12/17/21 17:16 Blood Blood Culture - Preliminary 12/17/21 17:15 Blood Blood Culture - Preliminary Patient Feedback: Patient satisfied with anesthetic care.
[2021-12-19 08:12] LABS: Glucose Point of Care 126 mg/dl (65-105)
[2021-12-19] MEDS: lisinopriL 20 MG TABLET 40 MG PO (08:29)
[2021-12-19] MEDS: TERAZOSIN HCL 5 MG CAPSULE PO (08:29)
[2021-12-19] MEDS: ATORVASTATIN 10 MG TABLET PO (08:29)
[2021-12-19] MEDS: amLODIPine BESYLATE 5 MG TABLET 10 MG PO (08:29)
[2021-12-19] MEDS: POTASSIUM CHLORIDE 20 MEQ TABLET.ER PO ×2 (08:29→16:41)
[2021-12-19] MEDS: GABAPENTIN 300 MG CAPSULE PO ×3 (08:30→16:42)
[2021-12-19] MEDS: PANTOPRAZOLE 40 MG TABLET PO (08:30)
[2021-12-19] MEDS: FINASTERIDE 5 MG TABLET PO (08:30)
[2021-12-19 11:29] LABS: Glucose Point of Care 175 mg/dl (65-105)
--- NOTE | 2021-12-19 14:19 | WPDUROPN2 ---
Progress Note: A&P Assessment and Plan (1) Urinary retention due to benign prostatic hyperplasia: Code(s): N40.1 - Benign prostatic hyperplasia with lower urinary tract symptoms; R33.8 - Other retention of urine Status: Acute Assessment and Plan: Dual therapy for BPH. Home with Rivers catheter (2) Bladder calculus: Code(s): N21.0 - Calculus in bladder Status: Acute Assessment and Plan: Removed (3) Left renal stone: Code(s): N20.0 - Calculus of kidney Status: Acute Assessment and Plan: Outpatient management Subjective Subjective Date/Time Seen: 12/19/21 14:19 No specific complaints. Tolerating Rivers catheter Exam Narrative: No acute distress. Urine clear on minimal CBI Objective Data Vital Signs Vital Signs: Vital Signs - 24 hr 12/18/21 14:25 12/18/21 14:43 12/18/21 15:15 Temperature 98.5 F Pulse Rate 79 98 95 Respiratory Rate 16 18 16 Blood Pressure 139/87 161/64 H 162/69 H Pulse Oximetry 94 93 95 12/18/21 16:00 12/18/21 19:31 12/18/21 20:12 Temperature Pulse Rate 102 H 79 Respiratory Rate Blood Pressure Pulse Oximetry 97 12/18/21 21:22 12/18/21 21:24 12/18/21 21:30 Temperature 98.8 F Pulse Rate 89 93 Respiratory Rate 18 Blood Pressure 155/75 H 164/73 H 148/76 H Pulse Oximetry 97 12/19/21 00:00 12/19/21 04:09 12/19/21 05:29 Temperature 98.2 F Pulse Rate 93 85 85 Respiratory Rate 18 Blood Pressure 142/69 H Pulse Oximetry 95 12/19/21 08:00 12/19/21 09:38 Temperature Pulse Rate 90 Respiratory Rate Blood Pressure 155/65 H 171/97 H Pulse Oximetry 95 Intake/Output Intake/Output: Intake & Output 12/16/21 12/17/21 12/18/21 12/19/21 23:59 23:59 23:59 23:59 Intake Total 2460 1630 490 Output Total 2250 10265 800 Balance 052 -58401 -310 Meds/Results Medications: Active Medications Generic Name Dose Route Start Last Admin Trade Name Freq PRN Reason Stop Dose Admin Amlodipine Besylate 10 mg 12/18/21 09:00 12/19/21 08:29 Amlodipine Besylate 5 Mg Tablet PO 10 mg DAILY VIRGIL Administration Atorvastatin Calcium 10 mg 12/18/21 09:00 12/19/21 08:29 Atorvastatin 10 Mg Tablet PO 10 mg DAILY VIRGIL Administration Dextrose 12.5 gm 12/17/21 13:21 Dextrose 50% 25 Gm/50 Ml Syringe IV PUSH PRN PRN Hypoglycemia Protocol Fentanyl Citrate 25 mcg 12/18/21 13:09 Fentanyl Citrate Inj (*Crx) 100 Mcg/2 Ml Vial IV PUSH Q2M PRN Pain Finasteride 5 mg 12/18/21 09:00 12/19/21 08:30 Finasteride 5 Mg Tablet PO 5 mg QAM VIRGIL Administration Gabapentin 300 mg 12/17/21 17:00 12/19/21 13:18 Gabapentin 300 Mg Capsule PO 300 mg TID VIRGIL Administration Glucagon 1 mg 12/17/21 13:21 Glucagon For Inj 1 Mg Vial IM PRN PRN Hypoglycemia Protocol Glucose 15 gm 12/17/21 13:21 Glucose Oral Gel 15 Gm Of Glucse In 37.5 Gm Tube PO PRN PRN Hypoglycemia Protocol Dextrose 1,000 mls @ 100 mls/hr 12/17/21 13:21 Dextrose 5% 1,000 Ml IVPB PRN PRN Hypoglycemia Protocol Ceftriaxone Sodium/Dextrose 1 gm in 50 mls @ 100 mls/hr 12/18/21 09:00 12/19/21 08:32 Rocephin 1 Gm/D5w 50 Ml IVPB 100 mls/hr Q24H VIRGIL Administration Lactated Ringer's 1,000 mls @ 30 mls/hr 12/18/21 12:45 12/19/21 13:17 Lr - Lactated Ringers Iv IV CONT Not Given .Q24H VIRGIL Lactated Ringer's 1,000 mls @ 30 mls/hr 12/18/21 13:10 12/19/21 13:18 Lr - Lactated Ringers Iv IV CONT Not Given .Q24H VIRGIL Insulin Aspart 2 - 5 units 12/17/21 17:00 12/19/21 11:39 Insulin Aspart (*Bkc) 100 Units/Ml SUB-Q Not Given TIDWM [facility] Protocol Lisinopril 40 mg 12/18/21 09:00 12/19/21 08:29 Lisinopril 20 Mg Tablet PO 01/17/22 08:59 40 mg DAILY VIRGIL Administration Ondansetron HCl 4 mg 12/17/21 11:04 Ondansetron Inj 4 Mg/2 Ml Vial IV PUSH Q4H PRN Nausea Ondansetron HC
[2021-12-19 16:29] LABS: Glucose Point of Care 134 mg/dl (65-105)
--- NOTE | 2021-12-19 18:31 | PM.IMPN ---
Progress Note: A&P Assessment and Plan (1) Dizziness: Code(s): R42 - Dizziness and giddiness Status: Acute Assessment and Plan: Sudden onset and improvement with medications received in the ER. Most likely benign paroxysmal positional vertigo. Monitor for now, meclizine versus outpatient PT versus ENT consultation as needed (2) Urinary retention due to benign prostatic hyperplasia: Code(s): N40.1 - Benign prostatic hyperplasia with lower urinary tract symptoms; R33.8 - Other retention of urine Status: Acute Assessment and Plan: Rivers catheter inserted with resolution of symptoms. Dr. Guerrero started combination finasteride and tamsulosin. CBI done yesterday, urine clear now. Discontinuation of CBI (3) Left renal stone: Code(s): N20.0 - Calculus of kidney Status: Acute Assessment and Plan: Plan for ESWL as an outpatient. (4) Bladder calculus: Code(s): N21.0 - Calculus in bladder Status: Acute Assessment and Plan: Cystoscopy completed, stone retrieved, fulguration of prostatic fossa completed (5) Type 2 diabetes mellitus: Code(s): E11.9 - Type 2 diabetes mellitus without complications Status: Acute Assessment and Plan: Hold metformin, continue Accu-Cheks plus sliding scale insulin, blood sugars consistently under 180, controlled (6) Hypertension: Code(s): I10 - Essential (primary) hypertension Status: Acute Assessment and Plan: Hydrochlorothiazide held while inpatient (7) Hyperlipidemia: Code(s): E78.5 - Hyperlipidemia, unspecified Status: Acute Assessment and Plan: Continue atorvastatin; LFTs within normal limits. Subjective Date/time seen: 12/19/21 18:31 Patient resting comfortably, eager to go home. CBI discontinued this afternoon, urine now clear. Will need to attempt voiding trials with PVRs prior to discharge. Patient denies fevers or chills, no nausea vomiting or diarrhea. No chest pain or shortness of breath. Review of Systems Review of Systems: All systems reviewed & are unremarkable except as noted in HPI and below Exam Const: General: no acute distress HENMT: Mouth: Yes moist mucous membranes Eyes: General: appearance normal, both eyes and all related structures Neck: Neck: no JVD Resp: Auscultation: clear to auscultation bilaterally Cardio: Rate: regular rate Rhythm: regular rhythm GI: Inspection: non-distended Skin: General skin exam: no rashes or lesions noted Psych: Mental Status: mental status grossly normal Objective Data Vital Signs Vital Signs: Vital Signs - 24 hr 12/18/21 19:31 12/18/21 20:12 12/18/21 21:22 Temperature 98.8 F Pulse Rate 79 89 Respiratory Rate 18 Blood Pressure 155/75 H Pulse Oximetry 97 97 12/18/21 21:24 12/18/21 21:30 12/19/21 00:00 Temperature Pulse Rate 93 93 Respiratory Rate Blood Pressure 164/73 H 148/76 H Pulse Oximetry 12/19/21 04:09 12/19/21 05:29 12/19/21 08:00 Temperature 98.2 F Pulse Rate 85 85 90 Respiratory Rate 18 Blood Pressure 142/69 H 155/65 H Pulse Oximetry 95 95 12/19/21 09:38 12/19/21 12:00 12/19/21 14:41 Temperature 98.3 F Pulse Rate 94 83 Respiratory Rate 20 Blood Pressure 171/97 H 144/61 H Pulse Oximetry 98 12/19/21 16:00 Temperature Pulse Rate 85 Respiratory Rate Blood Pressure Pulse Oximetry Intake/Output Intake/Output: Intake & Output 12/16/21 12/17/21 12/18/21 12/19/21 23:59 23:59 23:59 23:59 Intake Total 2460 1630 690 Output Total 2250 62511 3050 Balance 636 [phone] -[phone] Meds/Results Medications: Active Medications Generic Name Dose Route Start Last Admin Trade Name Freq PRN Reason Stop Dose Admin Amlodipine Besylate 10 mg 12/18/21 09:00 12/19/21 08:29 Amlodipine Besylate 5 Mg Tablet PO 10 mg DAILY VIRGIL Administration Atorvastatin Calcium 10 mg 12/18/21 0
[2021-12-19 21:45] LABS: Glucose Point of Care 150 mg/dl (65-105)
[2021-12-20] VITALS (10 sets, daily range): BP systolic 133–155; BP diastolic 61–72; PULSE 70–108; RESP 18; TEMP 36.4–37.6; O2SAT 94–100
[2021-12-20 07:55] LABS: Glucose Point of Care 134 mg/dl (65-105)
[2021-12-20] MEDS: GABAPENTIN 300 MG CAPSULE PO ×3 (09:14→18:10)
[2021-12-20] MEDS: lisinopriL 20 MG TABLET 40 MG PO (09:14)
[2021-12-20] MEDS: amLODIPine BESYLATE 5 MG TABLET 10 MG PO (09:15)
[2021-12-20] MEDS: TERAZOSIN HCL 5 MG CAPSULE PO (09:15)
[2021-12-20] MEDS: ATORVASTATIN 10 MG TABLET PO (09:15)
[2021-12-20] MEDS: POTASSIUM CHLORIDE 20 MEQ TABLET.ER PO ×2 (09:15→18:09)
[2021-12-20] MEDS: FINASTERIDE 5 MG TABLET PO (09:16)
[2021-12-20] MEDS: PANTOPRAZOLE 40 MG TABLET PO (09:16)
[2021-12-20 10:42] LABS: Basophils Percent Auto 0.3 % (0.2-1.2); Eosinophils Absolute Auto 0.2 K/mm3 (0-0.3); Eosinophils Percent Auto 1.9 % (0-4.4); Hematocrit 37.7 % (42.0-52.0); Hemoglobin 13.1 g/dL (14.0-18.0); Immature Granulocyte Absolute 0.03 K/mm3 (0.00-0.031); Immature Granulocyte Percent A 0.3 % (0-0.5); Lymphocytes Absolute Auto 0.99 K/mm3 (0.9-3.2); Lymphocytes Percent Auto 11.2 % (18.3-44.2); Mean Corpuscular HGB Conc 34.7 g/dl (32-36); Mean Corpuscular Hemoglobin 30.9 pg (26-34); Mean Corpuscular Volume 88.9 fl (80-100); Mean Platelet Volume 9.2 fl (7.4-10.4); Neutrophils Absolute Auto 6.7 K/mm3 (1.3-6.7); Neutrophils Percent Auto 75.3 % (45.5-73.1); Platelet Count Result 151 k/mm3 (150-375); Red Blood Count 4.24 M/mm3 (4.6-6.20); Red Cell Distribution Width 11.7 % (11.5-14.5); White Blood Count 8.9 K/mm3 (4.5-10.0)
[2021-12-20 10:52] LABS: Lactic Acid Reflex 1.3 mmol/L (0.7-2.0)
[2021-12-20 10:55] LABS: Alanine Aminotransferase 22 U/L (6-50); Albumin Level 3.7 g/dL (3.5-5.1); Alkaline Phosphatase 50 U/L (38-126); Anion Gap 8 mmol/L (8-16); Aspartate Amino Transferase 30 U/L (17-59); Bilirubin,Total 0.8 mg/dL (0.2-1.3); Blood Urea Nitrogen 18 mg/dL (9-20); CRP 7.8 mg/dL (<1.0); Calcium 8.7 mg/dL (8.4-10.2); Carbon Dioxide 23 mmol/L (22-30); Chloride 104 mmol/L (98-107); Estimated CRCL calculation 49 ml/min; Estimated Glomerular Filt Rate 58; Glucose 191 mg/dL (65-110); Sodium 135 mmol/L (137-145)
[2021-12-20 11:27] LABS: Procalcitonin 0.3 ng/mL
[2021-12-20 11:29] LABS: Glucose Point of Care 171 mg/dl (65-105)
--- NOTE | 2021-12-20 15:27 | PM.DS ---
DS: Admitting Diagnosis Discharge Date December 20, 2021 Admitting Diagnosis Bladder calculus with UTI Dizziness DS: Discharge Diagnosis Discharge Diagnosis (1) Urinary tract infection: Qualifiers: Hematuria presence: with hematuria Urinary tract infection type: site unspecified Qualified Code(s): N39.0 - Urinary tract infection, site not specified; R31.9 - Hematuria, unspecified Code(s): N39.0 - Urinary tract infection, site not specified Status: Acute (2) Dizziness: Code(s): R42 - Dizziness and giddiness Status: Acute Assessment and Plan: Sudden onset and improvement with medications received in the ER. Most likely benign paroxysmal positional vertigo. Monitor for now, meclizine versus outpatient PT versus ENT consultation as needed (3) Urinary retention due to benign prostatic hyperplasia: Code(s): N40.1 - Benign prostatic hyperplasia with lower urinary tract symptoms; R33.8 - Other retention of urine Status: Acute Assessment and Plan: Rivers catheter inserted with resolution of symptoms. Dr. Guerrero started combination finasteride and tamsulosin. CBI done yesterday, urine clear now. Discontinuation of CBI (4) Left renal stone: Code(s): N20.0 - Calculus of kidney Status: Acute Assessment and Plan: Plan for ESWL as an outpatient. (5) Bladder calculus: Code(s): N21.0 - Calculus in bladder Status: Acute Assessment and Plan: Cystoscopy completed, stone retrieved, fulguration of prostatic fossa completed (6) Type 2 diabetes mellitus: Code(s): E11.9 - Type 2 diabetes mellitus without complications Status: Acute Assessment and Plan: Hold metformin, continue Accu-Cheks plus sliding scale insulin, blood sugars consistently under 180, controlled (7) Hypertension: Code(s): I10 - Essential (primary) hypertension Status: Acute Assessment and Plan: Hydrochlorothiazide held while inpatient (8) Hyperlipidemia: Code(s): E78.5 - Hyperlipidemia, unspecified Status: Acute Assessment and Plan: Continue atorvastatin; LFTs within normal limits. DS: Summary Hospital Course Reason for hospitalization: Dizziness Hospital Course: 81-year-old male with past medical history significant for hypertension, hyperlipidemia, diabetes, history of gastrointestinal stromal tumor presented from home with nausea, vomiting and dizziness. He has had for about 5 minutes he felt like everything was spinning and he had to dry heave. He felt very nauseated. When he arrived to the hospital, he had an episode of coffee-ground emesis. He was given normal saline, Zofran, Valium and Antivert. This all resolved his symptoms within 30 minutes. He also was noted to have urinary frequency and some retention. Status at Discharge Functional status at discharge: independent ambulation Overall status at discharge: patient is back to baseline Time Spent with Patient Time attestation: Total time spent providing and/or coordinating discharge services: Greater than 30 minutes Time spent: Greater than 30 minutes DS: Data Data Completed and Pending Completed studies during hospitalization: Pending at discharge 12/18/21 13:26 Surgical [PTH] Routine Pending studies at discharge: Pending at discharge 12/18/21 11:28 Surgical [PTH] Routine Labs on day of discharge: Labs from last 24 hours 12/20/21 12/20/21 12/20/21 11:26 10:36 10:36 WBC RBC Hgb Hct MCV MCH MCHC RDW Plt Count MPV Immature Gran % (Auto) Neut % (Auto) Lymph % (Auto) [place] % (Auto) Eos % (Auto) Baso % (Auto) Lymph # (Auto) [place] # (Auto) Eos # (Auto) Baso # (Auto) Abs Immat Gran (auto) Absolute Neuts (auto) Absolute Nucleated RBC Nucleated RBC % Sodium Potassium Chloride Carbon Dioxide Anion Gap BUN
[2021-12-20 16:17] LABS: Glucose Point of Care 132 mg/dl (65-105)
--- NOTE | 2021-12-20 16:49 | PC.NURSE ---
Dr. Figueroa and Dr. Moody contacted, both verbalized they are ok with patient to discharge. Dr. Moody wants the che to remain until follow-up with urology in their office.
[2021-12-20] MEDS: MECLIZINE HCL 25 MG TABLET PO (18:09)
--- NOTE | 2021-12-20 18:42 | PC.NURSE ---
Patient is having some difficulty maintaining balance while seated upright. He kept falling back into bad if not supported by another person or holding onto something to keep himself up. MD notified and plan discussed. Due to concerns for the patient's safety, discharge will be held pending PT evaluation tomorrow.
[2021-12-20 20:12] LABS: Glucose Point of Care 202 mg/dl (65-105)
--- NOTE | 2021-12-20 20:22 | PM.IMPN ---
Progress Note: A&P Assessment and Plan (1) Urinary tract infection: Qualifiers: Hematuria presence: with hematuria Urinary tract infection type: site unspecified Qualified Code(s): N39.0 - Urinary tract infection, site not specified; R31.9 - Hematuria, unspecified Code(s): N39.0 - Urinary tract infection, site not specified Status: Acute Assessment and Plan: Urine culture showed Enterococcus sensitive to penicillin and Macrobid, has been getting IV Rocephin, will switch to p.o. amoxicillin to complete a total 14 days (2) Dizziness: Code(s): R42 - Dizziness and giddiness Status: Acute Assessment and Plan: Sudden onset and improvement with medications received in the ER. Most likely benign paroxysmal positional vertigo. Monitor for now, meclizine versus outpatient PT versus ENT consultation as needed (3) Urinary retention due to benign prostatic hyperplasia: Code(s): N40.1 - Benign prostatic hyperplasia with lower urinary tract symptoms; R33.8 - Other retention of urine Status: Acute Assessment and Plan: Rivers catheter inserted with resolution of symptoms. Dr. Guerrero started combination finasteride and tamsulosin. CBI done yesterday, urine clear now. Discontinuation of CBI 12/20: Urology recommends discharging patient home with Rivers in close outpatient follow-up with Urology for further management with lithotripsy and voiding trials (4) Left renal stone: Code(s): N20.0 - Calculus of kidney Status: Acute Assessment and Plan: Plan for ESWL as an outpatient. (5) Bladder calculus: Code(s): N21.0 - Calculus in bladder Status: Acute Assessment and Plan: Cystoscopy completed, stone retrieved, fulguration of prostatic fossa completed (6) Type 2 diabetes mellitus: Code(s): E11.9 - Type 2 diabetes mellitus without complications Status: Acute Assessment and Plan: Hold metformin, continue Accu-Cheks plus sliding scale insulin, blood sugars consistently under 180, controlled (7) Hypertension: Code(s): I10 - Essential (primary) hypertension Status: Acute Assessment and Plan: Hydrochlorothiazide held while inpatient (8) Hyperlipidemia: Code(s): E78.5 - Hyperlipidemia, unspecified Status: Acute Assessment and Plan: Continue atorvastatin; LFTs within normal limits. Subjective Date/time seen: 12/20/21 20:22 Review of Systems Review of Systems: All systems reviewed & are unremarkable except as noted in HPI and below Exam Const: General: no acute distress HENMT: Mouth: Yes moist mucous membranes Eyes: General: appearance normal, both eyes and all related structures Neck: Neck: no JVD Resp: Auscultation: clear to auscultation bilaterally Cardio: Rate: regular rate Rhythm: regular rhythm GI: Inspection: non-distended Skin: General skin exam: no rashes or lesions noted Psych: Mental Status: mental status grossly normal Objective Data Vital Signs Vital Signs: Vital Signs - 24 hr 12/20/21 00:00 12/20/21 04:18 12/20/21 05:03 Temperature 97.5 F L Pulse Rate 70 73 83 Respiratory Rate 18 Blood Pressure 155/72 H Pulse Oximetry 100 12/20/21 08:00 12/20/21 12:00 12/20/21 16:00 Temperature Pulse Rate 85 108 H 94 Respiratory Rate Blood Pressure Pulse Oximetry 12/20/21 20:17 Temperature 99.6 F Pulse Rate 91 Respiratory Rate 18 Blood Pressure 142/71 H Pulse Oximetry 94 Intake/Output Intake/Output: Intake & Output 12/17/21 12/18/21 12/19/21 12/20/21 23:59 23:59 23:59 23:59 Intake Total 2460 6464 662 0756 Output Total 2250 48012 7000 1150 Balance 210 -86706 -6260 590 Meds/Results Medications: Active Medications Generic Name Dose Route Start Last Admin Trade Name Freq PRN Reason Stop Dose Admin Amlodipine Besylate 10 mg 12/18/21 09:00 12/20/21 09:15 Amlodipine Besylate 5
[2021-12-21] VITALS (10 sets, daily range): BP systolic 102–164; BP diastolic 49–72; PULSE 77–98; RESP 16–20; TEMP 37.1–37.6; O2SAT 91–97
[2021-12-21 08:06] LABS: Glucose Point of Care 230 mg/dl (65-105)
[2021-12-21] MEDS: TERAZOSIN HCL 5 MG CAPSULE PO (08:27)
[2021-12-21] MEDS: lisinopriL 20 MG TABLET 40 MG PO (08:27)
[2021-12-21] MEDS: FINASTERIDE 5 MG TABLET PO (08:27)
[2021-12-21] MEDS: ATORVASTATIN 10 MG TABLET PO (08:28)
[2021-12-21] MEDS: POTASSIUM CHLORIDE 20 MEQ TABLET.ER PO ×2 (08:28→16:52)
[2021-12-21] MEDS: amLODIPine BESYLATE 5 MG TABLET 10 MG PO (08:28)
[2021-12-21] MEDS: GABAPENTIN 300 MG CAPSULE PO ×3 (08:28→16:47)
[2021-12-21] MEDS: PANTOPRAZOLE 40 MG TABLET PO (08:28)
[2021-12-21] MEDS: INSULIN ASPART (*BKC) 100 UNITS/ML SUB-Q ×2 (08:36→16:46)
[2021-12-21] MEDS: AMOXICILLIN/CLAVULANATE K 875-125 MG TAB 1 TABLET PO (09:30)
[2021-12-21 12:42] LABS: Glucose Point of Care 168 mg/dl (65-105)
[2021-12-21] MEDS: MECLIZINE HCL 25 MG TABLET PO (12:46)
--- NOTE | 2021-12-21 16:19 | PM.IMPN ---
Progress Note: A&P Assessment and Plan (1) Urinary tract infection: Qualifiers: Hematuria presence: with hematuria Urinary tract infection type: site unspecified Qualified Code(s): N39.0 - Urinary tract infection, site not specified; R31.9 - Hematuria, unspecified Code(s): N39.0 - Urinary tract infection, site not specified Status: Acute Assessment and Plan: Urine culture showed Enterococcus sensitive to penicillin and Macrobid, has been getting IV Rocephin, will switch to p.o. amoxicillin to complete a total 14 days, end date is December 28, 2021 (2) Dizziness: Code(s): R42 - Dizziness and giddiness Status: Acute Assessment and Plan: Sudden onset and improvement with medications received in the ER. Most likely benign paroxysmal positional vertigo. Monitor for now, meclizine versus outpatient PT versus ENT consultation as needed 12/21: PT OT eval concern for balance issues, CTA head and neck ordered, suspect peripheral vertigo issues such as labyrinthitis versus BPPV, will follow-up with vestibular PT versus ENT consult at rehab (3) Urinary retention due to benign prostatic hyperplasia: Code(s): N40.1 - Benign prostatic hyperplasia with lower urinary tract symptoms; R33.8 - Other retention of urine Status: Acute Assessment and Plan: Rivers catheter inserted with resolution of symptoms. Dr. Guerrero started combination finasteride and tamsulosin. CBI done yesterday, urine clear now. Discontinuation of CBI 12/20: Urology recommends discharging patient home with Rivers in close outpatient follow-up with Urology for further management with lithotripsy and voiding trials (4) Left renal stone: Code(s): N20.0 - Calculus of kidney Status: Acute Assessment and Plan: Plan for ESWL as an outpatient. (5) Bladder calculus: Code(s): N21.0 - Calculus in bladder Status: Acute Assessment and Plan: Cystoscopy completed, stone retrieved, fulguration of prostatic fossa completed (6) Type 2 diabetes mellitus: Code(s): E11.9 - Type 2 diabetes mellitus without complications Status: Acute Assessment and Plan: Hold metformin, continue Accu-Cheks plus sliding scale insulin, blood sugars consistently under 180, controlled (7) Hypertension: Code(s): I10 - Essential (primary) hypertension Status: Acute Assessment and Plan: Hydrochlorothiazide held while inpatient (8) Hyperlipidemia: Code(s): E78.5 - Hyperlipidemia, unspecified Status: Acute Assessment and Plan: Continue atorvastatin; LFTs within normal limits. Subjective Date/time seen: 12/21/21 16:19 Patient resting comfortably without any complaints. He states he does feel a little weak, but better than when he came in. He admits to some intermittent episodes of dizziness and spinning sensations the make him feel off balance. He denies chest pain or shortness of breath. No nausea vomiting diarrhea at this time. Review of Systems Review of Systems: All systems reviewed & are unremarkable except as noted in HPI and below Exam Const: General: no acute distress HENMT: Mouth: Yes moist mucous membranes Eyes: General: appearance normal, both eyes and all related structures Neck: Neck: no JVD Resp: Auscultation: clear to auscultation bilaterally Cardio: Rate: regular rate Rhythm: regular rhythm GI: Inspection: non-distended Skin: General skin exam: no rashes or lesions noted Neuro: Other: Cranial nerves 2-12 are grossly intact, strength is 5/5 throughout upper and lower extremities Psych: Mental Status: mental status grossly normal Objective Data Vital Signs Vital Signs: Vital Signs - 24 hr 12/20/21 20:00 12/20/21 20:17 12/20/21 20:47 Temperature 99.6 F Pulse Rate 105 H 91 90 Respiratory Rate 18 Blood Pressure 142/71 H 134/61 Pulse Oximetry 94 98 12/20/21 20:49 12/21/21 00
[2021-12-21 16:31] LABS: Glucose Point of Care 210 mg/dl (65-105)
[2021-12-21 20:37] LABS: Glucose Point of Care 190 mg/dl (65-105)
[2021-12-22] VITALS (8 sets, daily range): BP systolic 107–150; BP diastolic 39–63; PULSE 72–94; RESP 16–20; TEMP 36.3–37.1; O2SAT 95–97
--- NOTE | 2021-12-22 06:45 | WPDUROPN2 ---
Progress Note: A&P Assessment and Plan (1) Urinary retention due to benign prostatic hyperplasia: Code(s): N40.1 - Benign prostatic hyperplasia with lower urinary tract symptoms; R33.8 - Other retention of urine Status: Acute Assessment and Plan: Since he's still here will remove catheter for voiding trial today Subjective Subjective Date/Time Seen: 12/22/21 06:45 Comfortable, urine remains clear Review of Systems Cardiovascular: Cardiovascular: Denies chest pain, Denies lightheadedness, Denies palpitations and Denies dyspnea Respiratory: Respiratory: Denies dyspnea Gastrointestinal: Gastrointestinal: Denies diarrhea, Denies nausea and Denies vomiting Genitourinary: Genitourinary: Denies hematuria and Denies dysuria Endocrine: Endocrine: Denies palpitations Exam Const: General: no acute distress Resp: Effort & Inspection: normal respiratory effort GI: Inspection: non-distended GI Palp: No abdominal tenderness and No Guarding due to palpation present (GI) Auscultation: normal bowel sounds Urinary Catheter: Urinary Catheter: patent and draining and urine clear Objective Data Vital Signs Vital Signs: Vital Signs - 24 hr 12/21/21 08:00 12/21/21 09:20 12/21/21 09:21 Temperature Pulse Rate 92 Respiratory Rate 18 Blood Pressure 136/65 149/61 H 164/59 H Pulse Oximetry 91 12/21/21 14:42 12/21/21 19:58 12/21/21 20:00 Temperature 98.9 F Pulse Rate 92 Respiratory Rate 16 Blood Pressure 102/61 123/50 L 140/49 L Pulse Oximetry 95 12/21/21 22:00 12/22/21 06:00 Temperature 98.7 F 97.9 F Pulse Rate 77 81 Respiratory Rate 20 16 Blood Pressure 123/50 L 141/55 H Pulse Oximetry 97 95 Intake/Output Intake/Output: Intake & Output 12/19/21 12/20/21 12/21/21 12/22/21 23:59 23:59 23:59 23:59 Intake Total 740 2090 1020 Output Total 7000 1150 600 650 Balance -6260 940 420 -650 Meds/Results Medications: Active Medications Generic Name Dose Route Start Last Admin Trade Name Freq PRN Reason Stop Dose Admin Amlodipine Besylate 10 mg 12/18/21 09:00 12/21/21 08:28 Amlodipine Besylate 5 Mg Tablet PO 10 mg DAILY VIRGIL Administration Atorvastatin Calcium 10 mg 12/18/21 09:00 12/21/21 08:28 Atorvastatin 10 Mg Tablet PO 10 mg DAILY VIRGIL Administration Dextrose 12.5 gm 12/17/21 13:21 Dextrose 50% 25 Gm/50 Ml Syringe IV PUSH PRN PRN Hypoglycemia Protocol Finasteride 5 mg 12/18/21 09:00 12/21/21 08:27 Finasteride 5 Mg Tablet PO 5 mg QAM VIRGIL Administration Gabapentin 300 mg 12/17/21 17:00 12/21/21 16:47 Gabapentin 300 Mg Capsule PO 300 mg TID VIRGIL Administration Glucagon 1 mg 12/17/21 13:21 Glucagon For Inj 1 Mg Vial IM PRN PRN Hypoglycemia Protocol Glucose 15 gm 12/17/21 13:21 Glucose Oral Gel 15 Gm Of Glucse In 37.5 Gm Tube PO PRN PRN Hypoglycemia Protocol Dextrose 1,000 mls @ 100 mls/hr 12/17/21 13:21 Dextrose 5% 1,000 Ml IVPB PRN PRN Hypoglycemia Protocol Insulin Aspart 2 - 5 units 12/17/21 17:00 12/21/21 16:46 Insulin Aspart (*Bkc) 100 Units/Ml SUB-Q 2 units TIDWM VIRGIL Administration Protocol Lisinopril 40 mg 12/18/21 09:00 12/21/21 08:27 Lisinopril 20 Mg Tablet PO 01/17/22 08:59 40 mg DAILY VIRGIL Administration Meclizine HCl 25 mg 12/21/21 12:10 12/21/21 12:46 Meclizine Hcl 25 Mg Tablet PO 25 mg QAM VIRGIL Administration Ondansetron HCl 4 mg 12/17/21 11:04 Ondansetron Inj 4 Mg/2 Ml Vial IV PUSH Q4H PRN Nausea Pantoprazole Sodium 40 mg 12/19/21 09:00 12/21/21 08:28 Pantoprazole 40 Mg Tablet PO 40 mg QAM VIRGIL Administration Potassium Chloride 20 meq 12/17/21 17:00 12/21/21 16:52 Potassium Chloride 20 Meq Tablet.Er PO 20 meq BIDWM VIRGIL Administration Terazosin HCl 5 mg 12/18/21 09:00 12/21/21 08:27 Terazosin Hcl 5 Mg Capsule PO 5 mg DAILY VIRGIL Admini
[2021-12-22 07:11] LABS: Glucose Point of Care 144 mg/dl (65-105)
[2021-12-22] MEDS: GABAPENTIN 300 MG CAPSULE PO ×3 (09:02→16:24)
[2021-12-22] MEDS: POTASSIUM CHLORIDE 20 MEQ TABLET.ER PO ×2 (09:02→16:24)
[2021-12-22] MEDS: lisinopriL 20 MG TABLET 40 MG PO (09:02)
[2021-12-22] MEDS: amLODIPine BESYLATE 5 MG TABLET 10 MG PO (09:02)
[2021-12-22] MEDS: TERAZOSIN HCL 5 MG CAPSULE PO (09:03)
[2021-12-22] MEDS: MECLIZINE HCL 25 MG TABLET PO (09:03)
[2021-12-22] MEDS: FINASTERIDE 5 MG TABLET PO (09:03)
[2021-12-22] MEDS: ATORVASTATIN 10 MG TABLET PO (09:03)
[2021-12-22] MEDS: PANTOPRAZOLE 40 MG TABLET PO (09:03)
--- NOTE | 2021-12-22 11:11 | PM.IMPN ---
Progress Note: A&P Assessment and Plan (1) Urinary tract infection: Qualifiers: Hematuria presence: with hematuria Urinary tract infection type: site unspecified Qualified Code(s): N39.0 - Urinary tract infection, site not specified; R31.9 - Hematuria, unspecified Code(s): N39.0 - Urinary tract infection, site not specified Status: Acute Assessment and Plan: Pending placement Continue amoxicillin on discharge (2) Dizziness: Code(s): R42 - Dizziness and giddiness Status: Acute Assessment and Plan: Sudden onset and improvement with medications received in the ER. Most likely benign paroxysmal positional vertigo. Monitor for now, meclizine versus outpatient PT versus ENT consultation as needed PT OT eval concern for balance issues, CTA head and neck negative, suspect peripheral vertigo issues such as labyrinthitis probably benign positional vertigo Follow-up with neurology and ENT as outpatient (3) Urinary retention due to benign prostatic hyperplasia: Code(s): N40.1 - Benign prostatic hyperplasia with lower urinary tract symptoms; R33.8 - Other retention of urine Status: Acute Assessment and Plan: Rivers catheter inserted with resolution of symptoms. Dr. Guerrero started combination finasteride and tamsulosin. CBI was discontinued voiding trial Urology recommends close outpatient follow-up with Urology for further management with lithotripsy (4) Left renal stone: Code(s): N20.0 - Calculus of kidney Status: Acute Assessment and Plan: Plan for ESWL as an outpatient. (5) Bladder calculus: Code(s): N21.0 - Calculus in bladder Status: Acute Assessment and Plan: Cystoscopy completed, stone retrieved, fulguration of prostatic fossa completed (6) Type 2 diabetes mellitus: Code(s): E11.9 - Type 2 diabetes mellitus without complications Status: Acute Assessment and Plan: Continue current (7) Hypertension: Code(s): I10 - Essential (primary) hypertension Status: Acute Assessment and Plan: Hydrochlorothiazide held while inpatient re-evaluate as outpatient (8) Hyperlipidemia: Code(s): E78.5 - Hyperlipidemia, unspecified Status: Acute Assessment and Plan: Continue atorvastatin; LFTs within normal limits. Subjective Date/time seen: 12/22/21 11:11 Interval history: Patient seen and examined Patient feels better today pending placement Urology recommendation appreciated pending voiding trial Patient denies fever headache chest pain shortness of breath I am seeing the patient for urine retention Exam Narrative: Alert Chest no wheeze crackles Abdomen nontender nondistended CVS S1 + S2 Lower extremity edema Objective Data Vital Signs Vital Signs: Vital Signs - 24 hr 12/21/21 14:42 12/21/21 19:58 12/21/21 20:00 Temperature 98.9 F Pulse Rate 92 Respiratory Rate 16 Blood Pressure 102/61 123/50 L 140/49 L Pulse Oximetry 95 12/21/21 22:00 12/22/21 06:00 12/22/21 08:00 Temperature 98.7 F 97.9 F Pulse Rate 77 81 Respiratory Rate 20 16 Blood Pressure 123/50 L 141/55 H 150/59 H Pulse Oximetry 97 95 12/22/21 10:21 Temperature Pulse Rate Respiratory Rate Blood Pressure 127/55 L Pulse Oximetry Intake/Output Intake/Output: Intake & Output 12/19/21 12/20/21 12/21/21 12/22/21 23:59 23:59 23:59 23:59 Intake Total 740 2090 1020 240 Output Total 7000 1150 600 650 Balance -6260 940 420 -410 Meds/Results Medications: Active Medications Generic Name Dose Route Start Last Admin Trade Name Freq PRN Reason Stop Dose Admin Amlodipine Besylate 10 mg 12/18/21 09:00 12/22/21 09:02 Amlodipine Besylate 5 Mg Tablet PO 10 mg DAILY VIRGIL Administration Atorvastatin Calcium 10 mg 12/18/21 09:00 12/22/21 09:03 Atorvastatin 10 Mg Tablet PO 10 mg DAILY VIRGIL Administration Dextrose 12.5 gm 0
[2021-12-22 11:31] LABS: Glucose Point of Care 242 mg/dl (65-105)
[2021-12-22 11:40] LABS: Basophils Percent Auto 0.4 % (0.2-1.2); Eosinophils Absolute Auto 0.2 K/mm3 (0-0.3); Eosinophils Percent Auto 3.2 % (0-4.4); Hematocrit 33.9 % (42.0-52.0); Hemoglobin 11.5 g/dL (14.0-18.0); Immature Granulocyte Absolute 0.03 K/mm3 (0.00-0.031); Immature Granulocyte Percent A 0.4 % (0-0.5); Lymphocytes Absolute Auto 1.12 K/mm3 (0.9-3.2); Lymphocytes Percent Auto 15.6 % (18.3-44.2); Mean Corpuscular HGB Conc 33.9 g/dl (32-36); Mean Corpuscular Hemoglobin 30.7 pg (26-34); Mean Corpuscular Volume 90.6 fl (80-100); Mean Platelet Volume 9.4 fl (7.4-10.4); Monocytes Percent Auto 13.8 % (2.6-8.5); Neutrophils Absolute Auto 4.8 K/mm3 (1.3-6.7); Neutrophils Percent Auto 66.6 % (45.5-73.1); Platelet Count Result 154 k/mm3 (150-375); Red Blood Count 3.74 M/mm3 (4.6-6.20); Red Cell Distribution Width 11.8 % (11.5-14.5); White Blood Count 7.2 K/mm3 (4.5-10.0)
[2021-12-22 11:51] LABS: Alanine Aminotransferase 38 U/L (6-50); Albumin Level 3.3 g/dL (3.5-5.1); Alkaline Phosphatase 53 U/L (38-126); Anion Gap 6 mmol/L (8-16); Aspartate Amino Transferase 51 U/L (17-59); Bilirubin,Total 0.6 mg/dL (0.2-1.3); Blood Urea Nitrogen 25 mg/dL (9-20); Calcium 8.4 mg/dL (8.4-10.2); Carbon Dioxide 25 mmol/L (22-30); Chloride 105 mmol/L (98-107); Estimated CRCL calculation 40 ml/min; Estimated Glomerular Filt Rate 45; Glucose 227 mg/dL (65-110); Potassium 4.1 mmol/L (3.4-5.0); Sodium 136 mmol/L (137-145)
[2021-12-22] MEDS: INSULIN ASPART (*BKC) 100 UNITS/ML SUB-Q (11:58)
[2021-12-22] MEDS: AMOXICILLIN 500 MG CAPSULE PO ×2 (13:05→20:11)
[2021-12-22 13:23] LABS: Creatine Kinase 223 U/L (55-170)
[2021-12-22] MEDS: SODIUM CHLORIDE 0.9% IV 1,000 ML 100 ML IV CONT (16:30)
[2021-12-22 16:37] LABS: Glucose Point of Care 171 mg/dl (65-105)
[2021-12-22 22:04] LABS: Glucose Point of Care 155 mg/dl (65-105)
[2021-12-23] MEDS: SODIUM CHLORIDE 0.9% IV 1,000 ML 100 ML IV CONT (03:31)
[2021-12-23 05:08] VITALS: BP 152/82; PULSE 81; RESP 18; TEMP 36.6; O2SAT 97
[2021-12-23 05:39] LABS: Basophils Percent Auto 0.4 % (0.2-1.2); Eosinophils Absolute Auto 0.2 K/mm3 (0-0.3); Eosinophils Percent Auto 2.9 % (0-4.4); Hematocrit 34.4 % (42.0-52.0); Immature Granulocyte Absolute 0.03 K/mm3 (0.00-0.031); Immature Granulocyte Percent A 0.4 % (0-0.5); Lymphocytes Absolute Auto 1.29 K/mm3 (0.9-3.2); Lymphocytes Percent Auto 15.6 % (18.3-44.2); Mean Corpuscular HGB Conc 34.9 g/dl (32-36); Mean Corpuscular Hemoglobin 31.3 pg (26-34); Mean Corpuscular Volume 89.8 fl (80-100); Mean Platelet Volume 9.5 fl (7.4-10.4); Monocytes Absolute Auto 0.9 K/mm3 (0.1-0.6); Monocytes Percent Auto 10.5 % (2.6-8.5); Neutrophils Absolute Auto 5.8 K/mm3 (1.3-6.7); Neutrophils Percent Auto 70.2 % (45.5-73.1); Platelet Count Result 190 k/mm3 (150-375); Red Blood Count 3.83 M/mm3 (4.6-6.20); Red Cell Distribution Width 11.6 % (11.5-14.5); White Blood Count 8.3 K/mm3 (4.5-10.0)
[2021-12-23] MEDS: AMOXICILLIN 500 MG CAPSULE PO ×2 (05:54→13:08)
[2021-12-23 06:54] LABS: Alanine Aminotransferase 50 U/L (6-50); Albumin Level 3.4 g/dL (3.5-5.1); Alkaline Phosphatase 54 U/L (38-126); Anion Gap 4 mmol/L (8-16); Aspartate Amino Transferase 48 U/L (17-59); Bilirubin,Total 0.6 mg/dL (0.2-1.3); Blood Urea Nitrogen 22 mg/dL (9-20); Calcium 8.2 mg/dL (8.4-10.2); Carbon Dioxide 22 mmol/L (22-30); Chloride 110 mmol/L (98-107); Estimated CRCL calculation 49 ml/min; Estimated Glomerular Filt Rate 58; Glucose 162 mg/dL (65-110); Potassium 4.2 mmol/L (3.4-5.0); Sodium 136 mmol/L (137-145)
[2021-12-23 07:30] LABS: Glucose Point of Care 156 mg/dl (65-105)
[2021-12-23 08:00] VITALS: BP 136/66
[2021-12-23] MEDS: POTASSIUM CHLORIDE 20 MEQ TABLET.ER PO ×2 (08:45→16:33)
[2021-12-23] MEDS: ATORVASTATIN 10 MG TABLET PO (08:45)
[2021-12-23] MEDS: GABAPENTIN 300 MG CAPSULE PO ×3 (08:45→16:33)
[2021-12-23] MEDS: PANTOPRAZOLE 40 MG TABLET PO (08:45)
[2021-12-23] MEDS: FINASTERIDE 5 MG TABLET PO (08:45)
[2021-12-23] MEDS: TERAZOSIN HCL 5 MG CAPSULE PO (08:45)
[2021-12-23] MEDS: amLODIPine BESYLATE 5 MG TABLET 10 MG PO (08:45)
[2021-12-23] MEDS: MECLIZINE HCL 25 MG TABLET PO (08:46)
[2021-12-23 09:43] VITALS: BP 129/62; BP 149/66
[2021-12-23 11:35] LABS: Glucose Point of Care 212 mg/dl (65-105)
--- NOTE | 2021-12-23 11:58 | PM.DS ---
DS: Admitting Diagnosis Discharge Date 12/24/2019 Admitting Diagnosis Dizziness DS: Discharge Diagnosis Discharge Diagnosis (1) Urinary tract infection: Qualifiers: Hematuria presence: with hematuria Urinary tract infection type: site unspecified Qualified Code(s): N39.0 - Urinary tract infection, site not specified; R31.9 - Hematuria, unspecified Code(s): N39.0 - Urinary tract infection, site not specified Status: Acute Assessment and Plan: Continue amoxicillin on discharge (2) Dizziness: Code(s): R42 - Dizziness and giddiness Status: Acute Assessment and Plan: Sudden onset and improvement with medications received in the ER. Most likely benign paroxysmal positional vertigo. Monitor for now, meclizine versus outpatient PT versus ENT consultation as needed PT OT eval concern for balance issues, CTA head and neck negative, suspect peripheral vertigo issues such as labyrinthitis probably benign positional vertigo Follow-up with neurology and ENT as outpatient (3) Urinary retention due to benign prostatic hyperplasia: Code(s): N40.1 - Benign prostatic hyperplasia with lower urinary tract symptoms; R33.8 - Other retention of urine Status: Acute Assessment and Plan: Rivers catheter inserted with resolution of symptoms. Dr. Guerrero started combination finasteride and tamsulosin. CBI was discontinued voiding trial Urology recommends close outpatient follow-up with Urology for further management with lithotripsy (4) Left renal stone: Code(s): N20.0 - Calculus of kidney Status: Acute Assessment and Plan: Plan for ESWL as an outpatient. (5) Bladder calculus: Code(s): N21.0 - Calculus in bladder Status: Acute Assessment and Plan: Cystoscopy completed, stone retrieved, fulguration of prostatic fossa completed (6) Type 2 diabetes mellitus: Code(s): E11.9 - Type 2 diabetes mellitus without complications Status: Acute Assessment and Plan: Continue current (7) Hypertension: Code(s): I10 - Essential (primary) hypertension Status: Acute Assessment and Plan: Hydrochlorothiazide held while inpatient re-evaluate as outpatient (8) Hyperlipidemia: Code(s): E78.5 - Hyperlipidemia, unspecified Status: Acute Assessment and Plan: Continue atorvastatin; LFTs within normal limits. (9) Acute upper GI bleed: Code(s): K92.2 - Gastrointestinal hemorrhage, unspecified Status: Acute Assessment and Plan: Status post endoscopy shows gastric ulcer GI was consulted Follow-up with GI as outpatient Recommend repeat EGD in 3 months Continue PPI Avoid aspirin and NSAID DS: Summary Hospital Course Hospital Course: 81-year-old male with past medical history significant for hypertension, hyperlipidemia, diabetes, history of gastrointestinal stromal tumor presented from home with nausea, vomiting and dizziness. He has had for about 5 minutes he felt like everything was spinning and he had to dry heave. He felt very nauseated. When he arrived to the hospital, he had an episode of coffee-ground emesis. He was given normal saline, Zofran, Valium and Antivert. This all resolved his symptoms within 30 minutes. He also was noted to have urinary frequency and some retention. Patient was found to have UTI bladder stone kidney stone urology was consulted cystoscopy was done follow-up with urology has been, patient had EGD showed gastric ulcer recommended PPI follow-up with GI as outpatient recommend repeat EGD in 3 months Time Spent with Patient Time attestation: Total time spent providing and/or coordinating discharge services: 35 Exam Narrative: Alert Chest no wheeze crackles Abdomen nontender nondistended CVS S1 + S2 Lower extremity edema DS: Data Data Completed and Pending Completed studies during hospitalization: Pending at discharge 05
[2021-12-23] MEDS: INSULIN ASPART (*BKC) 100 UNITS/ML SUB-Q ×2 (13:08→16:33)
[2021-12-23] MEDS: ACETAMINOPHEN 325 MG TABLET 650 MG PO (13:59)
--- NOTE | 2021-12-23 14:18 | PCOTNOTE ---
Patient not seen for OT this date. Will continue OT plan of care.
[2021-12-23 14:43] VITALS: BP 145/56; PULSE 73; RESP 18; TEMP 36.7; O2SAT 95
--- NOTE | 2021-12-23 15:41 | WPDUROPN2 ---
Progress Note: A&P Assessment and Plan (1) Urinary retention due to benign prostatic hyperplasia: Code(s): N40.1 - Benign prostatic hyperplasia with lower urinary tract symptoms; R33.8 - Other retention of urine Status: Acute Assessment and Plan: Continue Terazosin and Finasteride. Keep che in place and f/u in one week with Samreen Feldman DIAGNOSTIC TECH for a voiding trial and to discuss Urodynamics. We discussed Urodynamics and his inability to urinate as being caused either from a neurogenic bladder or intolerance of his BPH meds despite having a recent fulguration of his prostatic fossa. (2) Bladder calculus: Code(s): N21.0 - Calculus in bladder Status: Acute Assessment and Plan: Resolved s/p removal. Subjective Subjective Date/Time Seen: 12/23/21 15:41 POD #5 Cystoscopy with extraction of bladder calculus, fulguration of prostatic fossa with Dr. Bruce The patient unfortunately failed his voiding trial last night, despite being on Terazosin and Finasteride for many years. Review of Systems Cardiovascular: Cardiovascular: Denies chest pain Respiratory: Respiratory: Reports no additional respiratory complaints Gastrointestinal: Gastrointestinal: Denies abdominal pain, Denies nausea and Denies vomiting Genitourinary: Genitourinary: Denies hematuria and Reports urinary hesitancy Exam Resp: Effort & Inspection: normal respiratory effort Cardio: Rate: regular rate GI: GI Palp: Yes Soft to palpation and No Tenderness to palpation present (GI) : General: Yes no CVA tenderness Urinary Catheter: Urinary Catheter: patent and draining and urine clear Extrem: General: no edema Objective Data Vital Signs Vital Signs: Vital Signs - 24 hr 12/22/21 20:54 12/22/21 21:44 12/22/21 21:46 Temperature 97.3 F L Pulse Rate 72 75 Respiratory Rate 16 Blood Pressure 138/63 142/63 H Pulse Oximetry 96 97 12/22/21 21:49 12/23/21 05:08 12/23/21 08:00 Temperature 97.8 F Pulse Rate 81 Respiratory Rate 18 Blood Pressure 124/58 L 152/82 H 136/66 Pulse Oximetry 97 12/23/21 09:43 12/23/21 14:43 Temperature 98.1 F Pulse Rate 73 Respiratory Rate 18 Blood Pressure 129/62 145/56 H Pulse Oximetry 95 Intake/Output Intake/Output: Intake & Output 12/20/21 12/21/21 12/22/21 12/23/21 23:59 23:59 23:59 23:59 Intake Total 2090 1020 1540 1780 Output Total 2442 868 6636 1925 Balance 940 420 515 -145 Meds/Results Medications: Active Medications Generic Name Dose Route Start Last Admin Trade Name Freq PRN Reason Stop Dose Admin Acetaminophen 650 mg 12/23/21 13:53 12/23/21 13:59 Acetaminophen 325 Mg Tablet PO 650 mg Q6H PRN Administration Mild Pain (1-3) or Fever Amlodipine Besylate 10 mg 12/18/21 09:00 12/23/21 08:45 Amlodipine Besylate 5 Mg Tablet PO 10 mg DAILY VIRGIL Administration Amoxicillin 500 mg 12/22/21 14:00 12/23/21 13:08 Amoxicillin 500 Mg Capsule PO 500 mg Q8HR VIRGIL Administration Atorvastatin Calcium 10 mg 12/18/21 09:00 12/23/21 08:45 Atorvastatin 10 Mg Tablet PO 10 mg DAILY VIRGIL Administration Dextrose 12.5 gm 12/17/21 13:21 Dextrose 50% 25 Gm/50 Ml Syringe IV PUSH PRN PRN Hypoglycemia Protocol Finasteride 5 mg 12/18/21 09:00 12/23/21 08:45 Finasteride 5 Mg Tablet PO 5 mg QAM VIRGIL Administration Gabapentin 300 mg 12/17/21 17:00 12/23/21 13:08 Gabapentin 300 Mg Capsule PO 300 mg TID VIRGIL Administration Glucagon 1 mg 12/17/21 13:21 Glucagon For Inj 1 Mg Vial IM PRN PRN Hypoglycemia Protocol Glucose 15 gm 12/17/21 13:21 Glucose Oral Gel 15 Gm Of Glucse In 37.5 Gm Tube PO PRN PRN Hypoglycemia Protocol Dextrose 1,000 mls @ 100 mls/hr 12/17/21 13:21 Dextrose 5% 1,000 Ml IVPB PRN PRN Hypoglycemia Protocol Insulin Aspart 2 - 5 units 12/17/21 17:00 12/23/21 13:08 Insulin Aspart (*Bkc) 100 Units
[2021-12-23 16:28] LABS: Glucose Point of Care 214 mg/dl (65-105)
[2021-12-23 16:56] LABS: EDCOVIDSCREEN Negative (Negative)
--- NOTE | 2021-12-23 17:29 | PCCCNOTE ---
Called by bedside RN Carolina, states that patient is to discharge to [facility] but she has not been able to get ahold of anyone to give report based on the number on the packet, she also called the number from online with no success. She states that she spoke with front counter clerk and they were unable to reach a nurse either. Called to [facility] at [phone], spoke with Sejal she states she has tried but unable to get ahold of anyone, and usually able to transfer calls but having problems, she states they are working on it. She tried to call [facility] but went to . Sejal states from speaking with other concerige for us to go ahead and send the patient. Called to [facility] additional line [phone], no answer left stating inability to contact nurse for report and we will still plan to send patient. Called back to floor spoke with Nica, asked for Carolina, she states that Carolina is now on the phone with [facility] giving report.
== END 2021-12-23 18:25 | DRG 666 ==
LOC: ANHED 11:19 → ANH3MED 11:41
PROVIDERS: Emergency Medicine; Internal Medicine Gastroenterology; Physician Assistant; Student in an Organized Health Care Education/Training Program; Urology; Admitting Provider Family Medicine; Emergency Provider Emergency Medicine; PCP Nurse Practitioner Adult Health; Visit Provider Internal Medicine
PROC: (CPT 52352; principal; 2021-12-18 12:00)
PROC: 0DJ08ZZ Inspection of Upper Intestinal Tract, Via Natural or Artificial Opening Endoscopic (ICD-10-PCS; CPT 43235; principal; 2021-12-18 12:30)
DX: N21.0 Calculus in bladder (principal); N39.0 Urinary tract infection, site not specified; K92.2 Gastrointestinal hemorrhage, unspecified; K25.3 Acute gastric ulcer without hemorrhage or perforation; B95.2 Enterococcus as the cause of diseases classified elsewhere; N20.0 Calculus of kidney; D17.71 Benign lipomatous neoplasm of kidney; H81.10 Benign paroxysmal vertigo, unspecified ear; R31.9 Hematuria, unspecified; N40.1 Benign prostatic hyperplasia with lower urinary tract symptoms; R33.8 Other retention of urine; Z20.822 Contact with and (suspected) exposure to COVID-19; E11.9 Type 2 diabetes mellitus without complications; E78.5 Hyperlipidemia, unspecified; I10 Essential (primary) hypertension; E87.6 Hypokalemia; Z90.49 Acquired absence of other specified parts of digestive tract
CPT/HCPCS: 36415; 70450; 70496; 70498; 71045; 74018; 74176; 74177; 80048; 80053; 81001; 82365; 82550; 82948; 83036; 83605; 83690; 83735; 84145; 84484; 85014; 85018; 85025; 85027; 85610; 85730; 86140; 86850; 86900; 86901; 87040; 87077; 87086; 87088; 87186; 87426; 88300; 88305; 88342; 93005; 96361; 96365; 96375; 96376; 97110; 97161; 97166; 97530; 97535; 99285; A9270; C1769; C9113; C9803; G0378; J0131; J0696; J1815; J2405; J2704; J3360; J3480; J7030; J7040; J7120; Q9967; U0003; U0005

== ENCOUNTER 2022-03-11 00:42 | Day surgery (SDC) | payer MEDICARE, OTHER, SELFPAY ==
[2022-02-22 14:18] VITALS: BMI 26.9
--- NOTE | 2022-03-10 12:59 | WPDANESEPPF ---
Anes - Initial Pre Proc Eval Procedure: Operation Date: 03/11/22 07:30 Proposed Procedures p Esophagogastroduodenoscopy - Jethro Flood MD Date/Time: 03/10/22 12:59 Surgeon: Jethro Flood MD Pre Op Diagnosis: Gastric Ulcer Patient Data Age: 81 Gender: M Height: 1.83 m Weight: 90 kg Allergies Allergy/AdvReac Type Severity Reaction Status Date / Time codeine Allergy Mild CONFUSION Verified 02/22/22 14:12 Home Medications Medication Instructions Recorded Confirmed Type amlodipine 10 mg tablet 10 mg PO HS 12/17/21 02/22/22 History aspirin 81 mg tablet 81 mg PO HS 12/17/21 02/22/22 History atorvastatin 10 mg tablet 10 mg PO HS 12/17/21 02/22/22 History cholecalciferol (vitamin D3) 50 2,000 unit PO BID 12/17/21 02/22/22 History mcg (2,000 unit) tablet gabapentin 300 mg capsule 300 mg PO BID 12/17/21 02/22/22 History omega-3 fatty acids-vitamin E 1,000 cap PO HS 12/17/21 02/22/22 History 1,000 mg capsule quinapril 40 mg tablet 40 mg PO BID 12/17/21 02/22/22 History terazosin 5 mg capsule 5 mg PO DAILY 12/17/21 02/22/22 History finasteride 5 mg tablet (Proscar) 5 mg PO QAM #30 tabs 12/20/21 02/22/22 Rx sitagliptin 50 mg tablet 50 mg PO DAILY #30 tabs 12/22/21 02/22/22 Rx pantoprazole 40 mg tablet,delayed 40 mg PO HS 30 days #30 tabs 12/23/21 02/22/22 Rx release Patient hx anesthesia problems: none Family hx anesthesia problems: none Results Review: All pre-operative results and documents have been reviewed as part of the pre-operative evaluation. 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 Hyperlipidemia Hypertension Kidney stones Type 2 diabetes mellitus Surgical History Surgical History History of appendectomy (1961) History of colonoscopy with polypectomy (09/21/04) Hyperplastic mucosal rectal polyp removed per Dr. Flood. History of resection of small bowel (01/22/09) Laparoscopic resection of cystic mass of the small intestine with anastomosis per Dr. Day. Family History Family History Mother Lung cancer Father Congestive heart failure Social History Social History Social History: Surrogate decision maker: Mala Bravo, spouse. Code status: Full code. Smoking status: Never smoker Alcohol intake: never Substance use: never Substance use type: does not use Living arrangements: with family Additional living arrangements comments: The patient lives with his in [place]. He enjoys building and working on computers. Additional occupation/education comments: Retired from the [employer]. Spiritual care concerns: No Anes - Eval Final PreProcedure Day of Procedure 03/10/22 12:59 Patient weight: overweight Heart: regular rate and rhythm Lungs: clear to auscultation Airway: Mallampati scale class II Neurological: alert and oriented Last oral intake: >/= 8 hours ASA classification: III Emergent: no Anesthetic plan: proceed Anesthesia type and monitoring: general GIVS and standard monitoring Results Review: All pre-operative results and documents have been reviewed as part of the pre-operative evaluation. Informed Consent: The patient's anesthetic plan and its attendant risks and benefits were discussed with the patient/family/POA. Questions were solicited and answers provided to the satisfaction of the patient/family/POA.
[2022-03-11 06:46] VITALS: BP 161/72; PULSE 77; RESP 20; TEMP 36.6; O2SAT 98; BMI 26.6
[2022-03-11] MEDS: LACTATED RINGERS 1,000 ML 150 ML IV CONT (07:03)
[2022-03-11 07:06] LABS: Glucose Point of Care 145 mg/dl (65-105)
--- NOTE | 2022-03-11 07:20 | PM.IMHP ---
H&P: HPI History of Present Illness Date/Time: 03/11/22 07:20 Chief Complaint: Gastric ulcer. Narrative: This is 81-year-old white male patient who was in the hospital 2 months ago with hematemesis found to have a gastric ulcer. Patient presents today for follow-up EGD to document healing. Additionally patient has a distant history of colon polyps 2004. He also has a history of a bladder stone which was removed by cystoscopy. Patient currently states his appetite is normal he denies abdominal pain has had no additional bleeding presents today for follow-up EGD. Review of Systems Review of Systems: Review of systems noncontributory. 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 Hyperlipidemia Hypertension Kidney stones Type 2 diabetes mellitus Surgical History Surgical History History of appendectomy (1961) History of colonoscopy with polypectomy (09/21/04) Hyperplastic mucosal rectal polyp removed per Dr. Flood. History of resection of small bowel (01/22/09) Laparoscopic resection of cystic mass of the small intestine with anastomosis per Dr. Day. Family History Family History Mother Lung cancer Father Congestive heart failure Social History Social History Social History: Surrogate decision maker: Mala Bravo, spouse. Code status: Full code. Smoking status: Never smoker Alcohol intake: never Substance use: never Substance use type: does not use Living arrangements: with family Additional living arrangements comments: The patient lives with his in [place]. He enjoys building and working on computers. Additional occupation/education comments: Retired from the [employer]. Spiritual care concerns: No Meds Home Medications and Allergies Home Medications Medication Instructions Recorded Confirmed Type amlodipine 10 mg tablet 10 mg PO HS 12/17/21 02/22/22 History aspirin 81 mg tablet 81 mg PO HS 12/17/21 02/22/22 History atorvastatin 10 mg tablet 10 mg PO HS 12/17/21 02/22/22 History cholecalciferol (vitamin D3) 50 2,000 unit PO BID 12/17/21 02/22/22 History mcg (2,000 unit) tablet gabapentin 300 mg capsule 300 mg PO BID 12/17/21 02/22/22 History omega-3 fatty acids-vitamin E 1,000 cap PO HS 12/17/21 02/22/22 History 1,000 mg capsule quinapril 40 mg tablet 40 mg PO BID 12/17/21 02/22/22 History terazosin 5 mg capsule 5 mg PO DAILY 12/17/21 02/22/22 History finasteride 5 mg tablet (Proscar) 5 mg PO QAM #30 tabs 12/20/21 02/22/22 Rx sitagliptin 50 mg tablet 50 mg PO DAILY #30 tabs 12/22/21 02/22/22 Rx pantoprazole 40 mg tablet,delayed 40 mg PO HS 30 days #30 tabs 12/23/21 02/22/22 Rx release Allergies Allergy/AdvReac Type Severity Reaction Status Date / Time codeine Allergy Mild CONFUSION Verified 02/22/22 14:12 Vital Signs Vital Signs - 24 hr 03/11/22 06:46 Temperature 97.8 F Pulse Rate 77 Respiratory Rate 20 Blood Pressure 161/72 H Pulse Oximetry 98 Oxygen Delivery Room Air Exam Narrative: Physical exam reveals patient to beAlert. Vital signs are stable. HEENT exam is unremarkable. Patient is anicteric. Lungs are clear to auscultation and percussion. Heart is without murmur or extra sounds. Abdominal exam bowel sounds are present soft nontender with no organomegaly. Digital external rectal exam normal. Assessment and Plan Assessment and plan (1) Gastric ulcer: Code(s): K25.9 - Gastric ulcer, unspecified as acute or chronic, without hemorrhage or perforation Status: Acute Assessment and Plan: Patient found to have gastric ulcer after hematemesis 2 months ago. Patient has been maintained on proton pump inhibitor therapy
[2022-03-11 08:28] VITALS: BP 128/59; PULSE 68; RESP 17; O2SAT 97
[2022-03-11 08:38] VITALS: BP 124/66; PULSE 64; RESP 18; O2SAT 96
[2022-03-11 08:48] VITALS: BP 143/77; PULSE 68; RESP 17; O2SAT 97
== END 2022-03-11 08:58 | disposition home or self-care (01) ==
PROVIDERS: PCP Nurse Practitioner Adult Health; Visit Provider Internal Medicine Gastroenterology
PROC: 0DJ08ZZ Inspection of Upper Intestinal Tract, Via Natural or Artificial Opening Endoscopic (ICD-10-PCS; CPT 43235; principal; 2022-03-11 07:30)
DX: Z09 Encounter for follow-up examination after completed treatment for conditions other than malignant neoplasm (principal); Q39.4 Esophageal web; Z87.11 Personal history of peptic ulcer disease; Z85.028 Personal history of other malignant neoplasm of stomach; I10 Essential (primary) hypertension; E11.9 Type 2 diabetes mellitus without complications; E78.5 Hyperlipidemia, unspecified; N40.1 Benign prostatic hyperplasia with lower urinary tract symptoms; R33.8 Other retention of urine; Z98.0 Intestinal bypass and anastomosis status; Z79.82 Long term (current) use of aspirin; Z79.84 Long term (current) use of oral hypoglycemic drugs; Z01.818 Encounter for other preprocedural examination
CPT/HCPCS: 43450; 43239; 82948; 87081; J7120

== ENCOUNTER 2022-04-26 01:14 | Day surgery (SDC) | payer MEDICARE, OTHER, SELFPAY ==
[2022-04-08 14:15] VITALS: BMI 26.4
[2022-04-26 09:13] VITALS: BP 177/73; PULSE 80; RESP 17; TEMP 36.1; O2SAT 99; BMI 25.8
[2022-04-26] MEDS: LACTATED RINGERS 1,000 ML 150 ML IV CONT (09:26)
--- NOTE | 2022-04-26 09:28 | PM.IMHP ---
H&P: HPI History of Present Illness Date/Time: 04/26/22 09:28 Chief Complaint: Neoplasia screening. Narrative: This is a 81-year-old white male patient presents for screening colonoscopy. Patient has a history of a benign hyperplastic polyp 2004. He had a small bowel GI stromal tumor removed in 2008. Patient's current weight appetite bowel movements are normal. He presents today for colonoscopy. 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 Most recent EGD in March of 2022 revealed a small web that was dilated the ulcer had healed. Patient presents today for screening colonoscopy. Reports that his current weight appetite bowel movements are normal. Review of Systems Review of Systems: Review of systems noncontributory. 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 Hyperlipidemia Hypertension Kidney stones Type 2 diabetes mellitus Surgical History Surgical History History of appendectomy (1961) History of colonoscopy with polypectomy (09/21/04) Hyperplastic mucosal rectal polyp removed per Dr. Flood. History of resection of small bowel (01/22/09) Laparoscopic resection of cystic mass of the small intestine with anastomosis per Dr. Day. Family History Family History Mother Lung cancer Father Congestive heart failure Social History Social History Social History: Surrogate decision maker: Mala Bravo, spouse. Code status: Full code. Smoking status: Never smoker Alcohol intake: never Substance use: never Substance use type: does not use Living arrangements: with family Additional living arrangements comments: The patient lives with his in [place]. He enjoys building and working on computers. Additional occupation/education comments: Retired from the [employer]. Spiritual care concerns: No Meds Home Medications and Allergies Home Medications Medication Instructions Recorded Confirmed Type amlodipine 10 mg tablet 10 mg PO HS 12/17/21 04/26/22 History aspirin 81 mg tablet 81 mg PO HS 12/17/21 04/26/22 History atorvastatin 10 mg tablet 10 mg PO HS 12/17/21 04/26/22 History cholecalciferol (vitamin D3) 50 2,000 unit PO BID 12/17/21 04/26/22 History mcg (2,000 unit) tablet omega-3 fatty acids-vitamin E 1,000 cap PO HS 12/17/21 04/26/22 History 1,000 mg capsule quinapril 40 mg tablet 40 mg PO BID 12/17/21 04/26/22 History terazosin 5 mg capsule 5 mg PO DAILY 12/17/21 04/26/22 History finasteride 5 mg tablet (Proscar) 5 mg PO QAM #30 tabs 12/20/21 04/26/22 Rx sitagliptin 50 mg tablet 50 mg PO DAILY #30 tabs 12/22/21 04/26/22 Rx sodium,potassium,mag sulfates 17.5 See Rx Instructions PO .COMPLEX 03/15/22 04/26/22 Rx gram-3.13 gram-1.6 gram oral soln #354 mL (Suprep Bowel Prep Kit) Allergies Allergy/AdvReac Type Severity Reaction Status Date / Time codeine Allergy Mild CONFUSION Verified 04/26/22 09:11 Vital Signs Vital Signs - 24 hr 04/26/22 09:13 Temperature 96.9 F L Pulse Rate 80 Respiratory Rate 17 Blood Pressure 177/73 H Pulse Oximetry 99 Oxygen Delivery Room Air Exam Narrative: Physical exam reveals patient to be alert. Vital signs stable. HEENT exam is unremarkable. Patient is anicteric. Lungs are clear to auscultation and percussion. Heart is without murmur or extra sounds. Abdominal exam bowel sounds are present soft nontender with no organomegaly. Digital external rectal exam is normal. Assessment and Plan Assessment and plan (1) Encounter for screening colonoscopy: Code(s): Z12.11 - Encounter for screening for malignant neoplasm of colon Status: Acute Assessment and Plan:
[2022-04-26 09:29] LABS: Glucose Point of Care 140 mg/dl (65-105)
--- NOTE | 2022-04-26 09:55 | WPDANESEPPF ---
Anes - Initial Pre Proc Eval Procedure: Operation Date: 04/26/22 10:00 Proposed Procedures p Screening Colonoscopy - Jethro Flood MD Date/Time: 04/26/22 09:55 Surgeon: Jethro Flood MD Pre Op Diagnosis: hx of colon polyps Patient Data Age: 81 Gender: M Height: 1.83 m Weight: 86.5 kg Last Vital Signs Temp 96.9 F L 04/26/22 09:13 Pulse 80 04/26/22 09:13 Resp 17 04/26/22 09:13 BP 177/73 H 04/26/22 09:13 Pulse Ox 99 04/26/22 09:13 O2 Del Method Room Air 04/26/22 09:13 Allergies Allergy/AdvReac Type Severity Reaction Status Date / Time codeine Allergy Mild CONFUSION Verified 04/26/22 09:11 Home Medications Medication Instructions Recorded Confirmed Type amlodipine 10 mg tablet 10 mg PO HS 12/17/21 04/26/22 History aspirin 81 mg tablet 81 mg PO HS 12/17/21 04/26/22 History atorvastatin 10 mg tablet 10 mg PO HS 12/17/21 04/26/22 History cholecalciferol (vitamin D3) 50 2,000 unit PO BID 12/17/21 04/26/22 History mcg (2,000 unit) tablet omega-3 fatty acids-vitamin E 1,000 cap PO HS 12/17/21 04/26/22 History 1,000 mg capsule quinapril 40 mg tablet 40 mg PO BID 12/17/21 04/26/22 History terazosin 5 mg capsule 5 mg PO DAILY 12/17/21 04/26/22 History finasteride 5 mg tablet (Proscar) 5 mg PO QAM #30 tabs 12/20/21 04/26/22 Rx sitagliptin 50 mg tablet 50 mg PO DAILY #30 tabs 12/22/21 04/26/22 Rx sodium,potassium,mag sulfates 17.5 See Rx Instructions PO .COMPLEX 03/15/22 04/26/22 Rx gram-3.13 gram-1.6 gram oral soln #354 mL (Suprep Bowel Prep Kit) Laboratory Tests 04/26/22 09:19 POC Capillary Glucose 140 mg/dl H mg/dl (65-105) Patient hx anesthesia problems: none Family hx anesthesia problems: none Results Review: All pre-operative results and documents have been reviewed as part of the pre-operative evaluation. 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 Hyperlipidemia Hypertension Kidney stones Type 2 diabetes mellitus Surgical History Surgical History History of appendectomy (1961) History of colonoscopy with polypectomy (09/21/04) Hyperplastic mucosal rectal polyp removed per Dr. Flood. History of resection of small bowel (01/22/09) Laparoscopic resection of cystic mass of the small intestine with anastomosis per Dr. Day. Family History Family History Mother Lung cancer Father Congestive heart failure Social History Social History Social History: Surrogate decision maker: Mala Bravo, spouse. Code status: Full code. Smoking status: Never smoker Alcohol intake: never Substance use: never Substance use type: does not use Living arrangements: with family Additional living arrangements comments: The patient lives with his in [place]. He enjoys building and working on computers. Additional occupation/education comments: Retired from the [employer]. Spiritual care concerns: No Anes - Eval Final PreProcedure Day of Procedure 04/26/22 09:55 Patient weight: normal Heart: regular rate and rhythm Lungs: clear to auscultation Neurological: alert and oriented Last oral intake: >/= 8 hours ASA classification: III Emergent: no Anesthetic plan: proceed Anesthesia type and monitoring: general GIVS and standard monitoring Results Review: All pre-operative results and documents have been reviewed as part of the pre-operative evaluation. Informed Consent: The patient's anesthetic plan and its attendant risks and benefits were discussed with the patient/family/POA. Questions were solicited and answers provided to the satisfaction of the patient/family/POA.
[2022-04-26 10:25] VITALS: BP 131/51; PULSE 67; RESP 22; O2SAT 98
[2022-04-26 10:35] VITALS: BP 133/63; PULSE 70; RESP 21; O2SAT 99
[2022-04-26 10:45] VITALS: BP 135/70; PULSE 62; RESP 19; O2SAT 99
== END 2022-04-26 10:56 | disposition home or self-care (01) ==
PROVIDERS: PCP Nurse Practitioner Adult Health; Visit Provider Internal Medicine Gastroenterology
PROC: 0DJD8ZZ Inspection of Lower Intestinal Tract, Via Natural or Artificial Opening Endoscopic (ICD-10-PCS; CPT 45378; principal; 2022-04-26 10:00)
DX: Z12.11 Encounter for screening for malignant neoplasm of colon (principal); D12.2 Benign neoplasm of ascending colon; K64.8 Other hemorrhoids; K57.30 Diverticulosis of large intestine without perforation or abscess without bleeding; Z79.82 Long term (current) use of aspirin; E78.5 Hyperlipidemia, unspecified; I10 Essential (primary) hypertension; E11.9 Type 2 diabetes mellitus without complications
CPT/HCPCS: 45385; 82948; 88305; J2704; J7120